=== PATIENT | male | born 2000 | race Caucasian/White ===

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

== ENCOUNTER 2019-12-25 09:02 | Emergency (ER) | payer BC, SELFPAY ==
[2019-12-25 09:13] VITALS: BP 141/87; PULSE 72; RESP 16; TEMP 36.6; O2SAT 98; BMI 20.9
--- NOTE | 2019-12-25 09:59 | HMH.EDBACK ---
ED Disposition Clinical Impression: Strain of lumbar region Disposition: Home, Self-Care Condition on Discharge: Good Instructions: DI for Low Back Pain, DI Sacroiliac Joint Dysfunction Prescriptions: Nabumetone 750 mg PO BID 10 Days #20 tab Transmission Status: Pending to [facility] Tizanidine HCl [Zanaflex 4mg tablet] 4 mg PO TID 10 Days #30 tab Transmission Status: Pending to [facility] Referrals: Provider,Referral, [Primary Care Provider] - - Critical Care Critical Care Time: No Attestation: On 12/25/19, the high probability of a clinically significant, sudden or life threatening deterioration of the following system(s) required my full and direct attention, intervention and personal management. The time I documented below is in addition to time spent performing reported procedures but includes the following listed in this critical care notation. Medical Decision Making - Medical Records Medical records reviewed: Yes: I reviewed the patient's medical records. - Chau Inquiry Pt receiving controlled substance: No Vital Signs: 12/25/19 09:13 Temperature 98 F Temperature Source Oral Pulse Rate [Left Radial] 72 Respiratory Rate 16 Blood Pressure [Right Arm] 141/87 H Blood Pressure Mean [Right Arm] 105 Blood Pressure Position [Right Arm] Sitting 02 Sat by Pulse Oximetry 98 Oxygen Delivery Method Room Air - Lab Data Lab results reviewed: Yes: I reviewed the patient's lab results. Orders (Tests/Meds): ORDERS Category Date Time Status Lumbar spine XR 2-3 views [XR lumbar spine 2-3V] Stat Exams 12/25/19 09:19 Stop Req Back Pain HPI - General Chief Complaint: Back Pain/Injury Stated Complaint: kidney pain,lower back pain no accident Time Seen by Provider: 12/25/19 09:59 Mode of Arrival: Ambulatory Source of Information: Patient Limitations: No Limitations Description of Symptoms (Recalled from ER Triage Doc. by RN): to ed per pvt car with c/o lower back pain with pain lt hip worse with movement. pt states he just went back to work and pain worse states he has been using a heating pad and tylenol with no relief - History of Present Illness HPI Narrative: 1-year-old male comes in with left-sided pain. He states the pain started yesterday after lifting some heavy objects. He states that it goes down almost in the flank area down to his buttocks and also down to his leg. Patient denies any numbness or tingling in his legs. Patient also denies any bowel or bladder incontinence. Patient also denies any recent fever shakes or chills. MD Complaint: back pain Onset (ago): hour(s) Duration: constant Similar Symptoms Previously: Yes Location: lumbar spine Severity: mild Quality: sharp Radiation: none Severity scale (1-10): 3 Exacerbating factors: none Context: while lifting - Related Data Previous Rx's Medication Instructions Recorded montelukast 10 mg tablet 10 mg PO PM #30 tab 09/10/18 Ondansetron [Zofran 4mg ODT] 4 mg PO Q8HP PRN #10 tab.rapdis 10/23/19 Nabumetone 750 mg PO BID 10 Days #20 tab 12/25/19 Tizanidine HCl [Zanaflex 4mg 4 mg PO TID 10 Days #30 tab 12/25/19 tablet] Allergies Allergy/AdvReac Type Severity Reaction Status Date / Time Penicillins [PENICILLINS] Allergy Unknown Verified 10/21/19 11:45 [facility] History - Hepatitis A Screen Drug use history?: No High risk sexual behaviors?: No History of sexually transmitted infection?: No Currently employed?: No Childcare worker?: No Do you have indoor plumbing?: Yes Do you have electricity?: Yes Attestation statement:: This patient has been screened for Hepatitis A risk factors. I have reviewed the patient's past medical history: Yes Medical History: Reports:: Anxiety Denies:: Cancer, Diabetes Mellitus Type 1, Diabetes Mellitus Type 2, MRSA Amputation: No Fractures: No - Social History Smoking Status: Current some day smoker Tobacco Type: cigarettes Alcohol Intake: nasrin
[2019-12-25 10:09] VITALS: BP 122/87; PULSE 87; RESP 20; TEMP 36.6; O2SAT 98
== END 2019-12-25 10:10 | disposition home or self-care (01) ==
PROVIDERS: Emergency Provider Family Medicine
DX: S39.012A Strain of muscle, fascia and tendon of lower back, initial encounter (principal); F41.8 Other specified anxiety disorders; F17.210 Nicotine dependence, cigarettes, uncomplicated; Z88.0 Allergy status to penicillin
CPT/HCPCS: 99281

== ENCOUNTER 2020-01-21 17:28 | Emergency (ER) | payer BC, SELFPAY ==
[2020-01-21 17:29] VITALS: BP 136/77; PULSE 84; RESP 22; TEMP 36.7; O2SAT 100; BMI 21.1
--- NOTE | 2020-01-21 18:09 | HMH.EDUTC ---
[facility] – [place] Disposition Clinical Impression: Asthma Qualifiers: Asthma severity: unspecified severity Asthma persistence: unspecified Asthma complication type: unspecified Qualified Code(s): J45.909 - Unspecified asthma, uncomplicated Disposition: Home, Self-Care Condition on Discharge: Good Instructions: Asthma -- Adult, DI for Asthma -- Adult Additional Instructions: Drink plenty of fluids. Take the medications as directed. Follow up with your regular doctor. GO TO THE ER FOR ANY WORSENING SYMPTOMS Prescriptions: Albuterol Sulfate [Albuterol Sulfate Hfa] 2 puffs IH Q6HP PRN 30 Days #1 hfa.aer.ad PRN Reason: Shortness Of Breath Transmission Status: Received by [facility] Referrals: Provider,Referral, [Primary Care Provider] - Forms: Work/School Release Time of Disposition: 18:15 Medical Decision Making - Medical Records Medical records reviewed: No: I reviewed the patient's medical records. - Chau Inquiry Pt receiving controlled substance: No Vital Signs: 01/21/20 17:29 01/21/20 18:17 Temperature 98.0 F 98.0 F Temperature Source Oral Pulse Rate 84 Pulse Rate [Left Radial] 84 Respiratory Rate 22 22 Blood Pressure 136/77 Blood Pressure [Left Arm] 136/77 Blood Pressure Mean [Left Arm] 96 02 Sat by Pulse Oximetry 100 [facility] [place] HPI - General Stated complaint: chest congestion Time Seen by Provider: 01/21/20 17:30 Mode of Arrival: Ambulatory Source of Information: Patient Limitations: No Limitations Description of Symptoms (Recalled from Triage Doc. by RN): PT STATES THAT HE HAS ASTHMA AND HAD AN ATTACK LAST NIGHT WHILE AT WORK AND IS OUT OF HIS EMERGENCY INHALER HEENT Symptoms (Recalled from RN notes): No Resp Symptoms (Recalled from RN notes): Yes (ASTHMA, NEEDS INHALER) Skin Symptoms (Recalled from RN notes): No MS Symptoms (Recalled from RN notes): No Functional Status (Recalled from RN notes): N/A - History of Present Illness Provider Complaint: He has a history of asthma. He doesn't usually have symptoms very frequently, but at his job he has been having to work in front of a big fan that stirs up dust. He states that the dust has been triggering his asthma and he has been wheezing and coughing while at work. He does not have an inhaler at this time. - Related Data Previous Rx's Medication Instructions Recorded montelukast 10 mg tablet 10 mg PO PM #30 tab 09/10/18 Ondansetron [Zofran 4mg ODT] 4 mg PO Q8HP PRN #10 tab.rapdis 10/23/19 Nabumetone 750 mg PO BID 10 Days #20 tab 12/25/19 Tizanidine HCl [Zanaflex 4mg 4 mg PO TID 10 Days #30 tab 12/25/19 tablet] Albuterol Sulfate [Albuterol 2 puffs IH Q6HP PRN 30 Days #1 01/21/20 Sulfate Hfa] hfa.aer.ad Allergies Allergy/AdvReac Type Severity Reaction Status Date / Time Penicillins [PENICILLINS] Allergy Unknown Verified 10/21/19 11:45 - Worker's Comp Is this a Worker's Comp case?: No [facility] History - Hepatitis A Screen Drug use history?: No High risk sexual behaviors?: No History of sexually transmitted infection?: No Currently employed?: No Childcare worker?: No Do you have indoor plumbing?: Yes Do you have electricity?: Yes Attestation statement:: This patient has been screened for Hepatitis A risk factors. I have reviewed the patient's past medical history: Yes Medical History: Reports:: Anxiety Denies:: Cancer, Diabetes Mellitus Type 1, Diabetes Mellitus Type 2, MRSA Amputation: No Fractures: No - Social History Smoking Status: Never smoker Tobacco Type: cigarettes Alcohol Intake: never Alcohol Intake Frequency:: other Substance Use Type: marijuana Occupational Status: employed Housing: other Household Members: other - Psychiatric History Pschychiatric History:: Reports:: Anxiety Family Hx:: No significant family history ROS Obtained: Yes All systems reviewed & no additional complaints - Constitutional Constitutional: Denies chills, Denies fever(s), Denies poor appetite, Obie
[2020-01-21 18:17] VITALS: BP 136/77; PULSE 84; RESP 22; TEMP 36.7; O2SAT 100
== END 2020-01-21 18:21 | disposition home or self-care (01) ==
PROVIDERS: Emergency Provider Nurse Practitioner Family
DX: J45.909 Unspecified asthma, uncomplicated (principal); F41.9 Anxiety disorder, unspecified
CPT/HCPCS: 99201

== ENCOUNTER 2020-03-18 10:01 | Emergency (ER) | payer OTHER, BC, SELFPAY ==
[2020-03-18 10:02] VITALS: BP 130/89; BP 132/89; PULSE 73; PULSE 76; RESP 16; RESP 18; TEMP 36.9; O2SAT 98; O2SAT 99; BMI 20.3
--- NOTE | 2020-03-18 10:11 | HMH.EDBACK ---
ED Disposition Clinical Impression: Thoracic myofascial strain Disposition: Home, Self-Care Condition on Discharge: Good Instructions: DI for Thoracic Back Pain Prescriptions: Ibuprofen [Ibuprofen 800mg Tablet] 800 mg PO TIDP PRN #20 tab PRN Reason: Moderate Pain Transmission Status: Pending to [facility] methocarbamoL [Robaxin 750mg Tab] 750 mg PO TID #21 tab Transmission Status: Pending to [facility] Referrals: PCP,No [Primary Care Provider] - Eren Farias MD [Staff Physician] - - Critical Care Critical Care Time: No Attestation: On , the high probability of a clinically significant, sudden or life threatening deterioration of the following system(s) required my full and direct attention, intervention and personal management. The time I documented below is in addition to time spent performing reported procedures but includes the following listed in this critical care notation. Medical Decision Making - Medical Records Medical records reviewed: Yes: I reviewed the patient's medical records. - Chau Inquiry Pt receiving controlled substance: No Vital Signs: 03/18/20 10:02 Pulse Rate [Right] 76 Respiratory Rate 18 Blood Pressure [Right Arm] 132/89 Blood Pressure Mean [Right Arm] 103 Blood Pressure Source [Right Arm] Automatic Cuff Blood Pressure Position [Right Arm] Supine 02 Sat by Pulse Oximetry 99 Oxygen Delivery Method Room Air - Reevaluation(s) Time: 10:15 Reevaluation #1: On reevaluation, patient is feeling better. Repeat exam does not show any neuro deficit. Patient is to follow-up with PCP. Given strict return precautions. Verbalized understanding. Medical Decision Narrative: 19-year-old male presenting to the emergency department with back pain. Patient symptoms are consistent with thoracic strain. Patient will be provided analgesics. Patient was given precautions injury maintenance. Back Pain HPI - General Chief Complaint: Back Pain/Injury Stated Complaint: [id number] back injury Time Seen by Provider: 03/18/20 10:12 Source of Information: Patient - History of Present Illness HPI Narrative: 19-year-old male presented to the emergency department with back pain. Patient states that he was working overnight when he injured his back. Patient states that he was lifting and twisting to place a box on a pallet when he felt some pain in his right upper back. Is dull in nature. It did worsen overnight as he continued working. Patient states that he went home and was having some spasm in his right upper back. Currently it is dull in nature. Nonradiating. He denies any chest pain or shortness of breath. No abdominal pain or vomiting. No dysuria or hematuria. No loss of sensation. No headache or change in vision. No direct trauma. - Related Data Previous Rx's Medication Instructions Recorded Ondansetron [Zofran 4mg ODT] 4 mg PO Q8HP PRN #10 tab.rapdis 10/23/19 Nabumetone 750 mg PO BID 10 Days #20 tab 12/25/19 Tizanidine HCl [Zanaflex 4mg 4 mg PO TID 10 Days #30 tab 12/25/19 tablet] Albuterol Sulfate [Albuterol 2 puffs IH Q6HP PRN 30 Days #1 01/21/20 Sulfate Hfa] hfa.aer.ad Ibuprofen [Ibuprofen 800mg 800 mg PO TIDP PRN #20 tab 03/18/20 Tablet] methocarbamoL [Robaxin 750mg Tab] 750 mg PO TID #21 tab 03/18/20 Allergies Allergy/AdvReac Type Severity Reaction Status Date / Time Penicillins [PENICILLINS] Allergy Unknown Verified 10/21/19 11:45 [facility] History - Hepatitis A Screen Drug use history?: No High risk sexual behaviors?: No History of sexually transmitted infection?: No Currently employed?: Yes Childcare worker?: No Do you have indoor plumbing?: Yes Do you have electricity?: Yes Does patient meet criteria?: No Does patient agree to Hepatitis A vaccine administration?: No Attestation statement:: This patient has been screened for Hepatitis A risk factors. Medical History: Reports:: Anxiety Denies:
[2020-03-18 10:32] VITALS: BP 122/78; PULSE 73; RESP 16; O2SAT 98
[2020-03-18 10:49] VITALS: BP 122/78; PULSE 73; RESP 15; TEMP 36.9; O2SAT 99
== END 2020-03-18 10:50 | disposition home or self-care (01) ==
PROVIDERS: Emergency Provider Emergency Medicine
DX: S29.019A Strain of muscle and tendon of unspecified wall of thorax, initial encounter (principal); X50.0XXA Overexertion from strenuous movement or load, initial encounter; Y92.69 Other specified industrial and construction area as the place of occurrence of the external cause; Y99.0 Civilian activity done for income or pay
CPT/HCPCS: 96372; 99282

== ENCOUNTER 2020-06-28 10:39 | Emergency (ER) | payer OTHER, SELFPAY ==
[2020-06-28 11:15] VITALS: BP 159/81; PULSE 101; RESP 14; TEMP 37.6; O2SAT 99; BMI 21.9
--- NOTE | 2020-06-28 11:29 | HMH.EDUTC ---
[facility] [place] Disposition Clinical Impression: Viral syndrome, Exposure to COVID-19 virus Disposition: Home, Self-Care Condition on Discharge: Good Instructions: Preventing the Spread of Coronavirus Discharge Instructions Additional Instructions: Drink plenty of fluids. Take tylenol for pain or fever. Return if you begin to have difficulty breathing. Follow up with your regular doctor. GO TO THE ER FOR ANY WORSENING SYMPTOMS Prescriptions: Albuterol Sulfate [Albuterol Sulfate Hfa] 2 puffs IH Q6HP PRN 30 Days #1 hfa.aer.ad PRN Reason: Shortness Of Breath Transmission Status: Received by [facility] Azithromycin [Z-Dominic 250mg Tab*] 250 mg PO UD DOSE PK #6 tab Transmission Status: Received by [facility] Referrals: PCP,No [Primary Care Provider] - Forms: Work/School Release Time of Disposition: 11:43 Medical Decision Making - Medical Records Medical records reviewed: No: I reviewed the patient's medical records. - Chau Inquiry Pt receiving controlled substance: No Vital Signs: 06/28/20 11:15 06/28/20 11:47 Temperature 99.7 F H 99.7 F H Temperature Source Oral Pulse Rate 101 H Pulse Rate [Right Brachial] 101 H Respiratory Rate 14 14 Blood Pressure 159/81 H Blood Pressure [Right Arm] 159/81 H Blood Pressure Mean [Right Arm] 107 Blood Pressure Source [Right Arm] Automatic Cuff Blood Pressure Position [Right Arm] Sitting 02 Sat by Pulse Oximetry 99 Oxygen Delivery Method Room Air Orders (Tests/Meds): ORDERS Category Date Time Status Covid-19 Nasal PCR Sendout [facility] Routine Lab 06/28/20 11:10 Received [facility] [place] HPI - General Stated complaint: covid exposure Time Seen by Provider: 06/28/20 11:29 Mode of Arrival: Ambulatory Source of Information: Patient Limitations: No Limitations Description of Symptoms (Recalled from Triage Doc. by RN): PATIENT C/O FEVER, WEAKNESS, CHILLS, FATIGUE AND HEADACHE SINCE YESTERDAY; REPORTS BEING EXPOSED TO COVID HEENT Symptoms (Recalled from RN notes): Yes Resp Symptoms (Recalled from RN notes): No Skin Symptoms (Recalled from RN notes): No MS Symptoms (Recalled from RN notes): No Functional Status (Recalled from RN notes): WNL - History of Present Illness Provider Complaint: He states that he was exposed to covid at his job last week. Over the past 2 days he has had chilling, low grade fever and body aches. He denies any cough or respiratory symptoms. He has a history of asthma, but at this time he is having no symptoms. - Related Data Previous Rx's Medication Instructions Recorded Ondansetron [Zofran 4mg ODT] 4 mg PO Q8HP PRN #10 tab.rapdis 10/23/19 Nabumetone 750 mg PO BID 10 Days #20 tab 12/25/19 Tizanidine HCl [Zanaflex 4mg 4 mg PO TID 10 Days #30 tab 12/25/19 tablet] Albuterol Sulfate [Albuterol 2 puffs IH Q6HP PRN 30 Days #1 01/21/20 Sulfate Hfa] hfa.aer.ad Ibuprofen [Ibuprofen 800mg 800 mg PO TIDP PRN #20 tab 03/18/20 Tablet] methocarbamoL [Robaxin 750mg Tab] 750 mg PO TID #21 tab 03/18/20 Albuterol Sulfate [Albuterol 2 puffs IH Q6HP PRN 30 Days #1 06/28/20 Sulfate Hfa] hfa.aer.ad Azithromycin [Z-Dominic 250mg Tab*] 250 mg PO UD DOSE PK #6 tab 06/28/20 Allergies Allergy/AdvReac Type Severity Reaction Status Date / Time Penicillins [PENICILLINS] Allergy Unknown Verified 10/21/19 11:45 - Worker's Comp Is this a Worker's Comp case?: No [facility] History - Hepatitis A Screen Drug use history?: No High risk sexual behaviors?: No History of sexually transmitted infection?: No Currently employed?: No Childcare worker?: No Do you have indoor plumbing?: Yes Do you have electricity?: Yes Attestation statement:: This patient has been screened for Hepatitis A risk factors. I have reviewed the patient's past medical history: Yes Medical History: Reports:: Anxiety Denies:: Cancer, Diabetes Mellitus Type 1, Diabetes Mellitus Type 2, MRSA Amputation: No Fractures: No - Social History Smoking Statu
[2020-06-28 11:47] VITALS: BP 159/81; PULSE 101; RESP 14; TEMP 37.6; O2SAT 99
[2020-06-28 20:59] LABS: UTC Influenza A Antigen Negative (Negative)
[2020-06-28 21:00] LABS: UTC Influenza B Antigen Negative (Negative)
[2020-06-29 14:53] LABS: Covid-19 Nasal PCR Sendout Lex Not Detected
== END 2020-06-28 11:50 | disposition home or self-care (01) ==
PROVIDERS: Emergency Provider Nurse Practitioner Family
DX: Z20.828 Contact with and (suspected) exposure to other viral communicable diseases (principal); B34.9 Viral infection, unspecified; F41.9 Anxiety disorder, unspecified; Z88.0 Allergy status to penicillin; Z79.899 Other long term (current) drug therapy
CPT/HCPCS: 87804; 99201; U0004

== ENCOUNTER 2020-07-01 18:21 | Emergency (ER) | payer OTHER, SELFPAY ==
[2020-07-01 18:48] VITALS: PULSE 87; RESP 16; TEMP 37.2; O2SAT 98; BMI 24.3
--- NOTE | 2020-07-01 19:00 | HMH.EDUTC ---
[facility] [place] Clinical Impression: URI (upper respiratory infection) Qualifiers: URI type: unspecified URI Qualified Code(s): J06.9 - Acute upper respiratory infection, unspecified Disposition: Home, Self-Care Condition on Discharge: Good Instructions: Sinusitis, DI for Sinusitis, Methylprednisolone Additional Instructions: *Monitor Temp, Over the counter Motrin or Tylenol as directed/as needed Tylenol every 4 hours and Motrin every 6 hours (as long as your family doctor has told you that you can take it) for fever or pain. and straight to ER if unable to lower temp less than 101.0 after medication given *Warm salt water gargles may help to soothe the throat *Throat Lozenges *Warm fluids like tea with honey may help to soothe the throat *Sleep elevated *Humidifier/Vaporizer *Flonase 2 sprays in each nostril daily but be aware that it may take 2-3 days before you notice improvement Follow up IMMEDIATELY for new or worsening symptoms or no Noticeable improvement over the next 48-72 hours. 911 for difficulty breathing or swallowing Prescriptions: Fluticasone Propionate [Flonase 50mcg nasal spray 16gm] 1 spr NS DAILY #1 bottle Transmission Status: Pending to [facility] methylPREDNISolone [Medrol 4mg tab] 4 mg PO DIRECTED #21 tab Transmission Status: Pending to [facility] Referrals: PCP,No [Primary Care Provider] - As needed Time of Disposition: 19:08 Medical Decision Making - Chau Inquiry Pt receiving controlled substance: No Chau was queried for this patient: No Vital Signs: 07/01/20 18:48 Temperature 98.9 F Temperature Source Oral Pulse Rate [Right] 87 Respiratory Rate 16 02 Sat by Pulse Oximetry 98 Oxygen Delivery Method Room Air Medical Decision Narrative: Patient states that he is currently taking zpack Patient educated that zpack will help with sinus infection and continue the medication as prescribed and will add flonase [facility] [place] H[place] - General Stated complaint: high temp at home Time Seen by Provider: 07/01/20 19:00 Mode of Arrival: Ambulatory Source of Information: Patient Limitations: No Limitations Description of Symptoms (Recalled from Triage Doc. by RN): pt advises he has been running a fever on and off for the past couple of days but his covdi tests have been neg HEENT Symptoms (Recalled from RN notes): No Resp Symptoms (Recalled from RN notes): No Skin Symptoms (Recalled from RN notes): No MS Symptoms (Recalled from RN notes): No Functional Status (Recalled from RN notes): na - History of Present Illness Provider Complaint: Patient state that he has been seen mucltiple times and tested for flu and COVID and they was negative State that he has been sick for almost 2 weeks with sinuses states that is taking zpack and symptoms a little better State that earlier he had a fever again so he came in to get checked and having pressure in his ears - Related Data Previous Rx's Medication Instructions Recorded Ondansetron [Zofran 4mg ODT] 4 mg PO Q8HP PRN #10 tab.rapdis 10/23/19 Nabumetone 750 mg PO BID 10 Days #20 tab 12/25/19 Tizanidine HCl [Zanaflex 4mg 4 mg PO TID 10 Days #30 tab 12/25/19 tablet] Albuterol Sulfate [Albuterol 2 puffs IH Q6HP PRN 30 Days #1 01/21/20 Sulfate Hfa] hfa.aer.ad Ibuprofen [Ibuprofen 800mg 800 mg PO TIDP PRN #20 tab 03/18/20 Tablet] methocarbamoL [Robaxin 750mg Tab] 750 mg PO TID #21 tab 03/18/20 Albuterol Sulfate [Albuterol 2 puffs IH Q6HP PRN 30 Days #1 06/28/20 Sulfate Hfa] hfa.aer.ad Azithromycin [Z-Dominic 250mg Tab*] 250 mg PO UD DOSE PK #6 tab 06/28/20 Fluticasone Propionate [Flonase 1 spr NS DAILY #1 bottle 07/01/20 50mcg nasal spray 16gm] methylPREDNISolone [Medrol 4mg 4 mg PO DIRECTED #21 tab 07/01/20 tab] Allergies Allergy/AdvReac Type Severity Reaction Status Date / Time Penicillins [PENICILLINS] Allergy Unknown Verified 10/21/19 11:45 - Worker's Comp Is this a Worker's Comp case?: N
[2020-07-01 19:10] VITALS: BP 0/0; PULSE 87; RESP 16; TEMP 37.2; O2SAT 98
== END 2020-07-01 19:10 | disposition home or self-care (01) ==
PROVIDERS: Emergency Provider Nurse Practitioner
DX: J06.9 Acute upper respiratory infection, unspecified (principal); F41.9 Anxiety disorder, unspecified; Z79.899 Other long term (current) drug therapy
CPT/HCPCS: 99201

== ENCOUNTER 2021-03-13 15:52 | Emergency (ER) | payer OTHER, SELFPAY ==
[2021-03-13 16:48] VITALS: BP 111/83; PULSE 87; RESP 20; TEMP 37.3; O2SAT 97; BMI 24.3
--- NOTE | 2021-03-13 16:50 | HMH.EDUTC ---
[facility] [place] Disposition Clinical Impression: Acute viral syndrome, Exposure to COVID-19 virus Disposition: Home, Self-Care Condition on Discharge: Good Instructions: DI for COVID-19 (Suspected or Confirmed ), Preventing the Spread of Coronavirus Discharge Instructions Additional Instructions: Drink plenty of fluids. Take tylenol for pain or fever. Return if you begin to have difficulty breathing. Follow up with your regular doctor. GO TO THE ER FOR ANY WORSENING SYMPTOMS Quarantine until you know the results of your covid-19 test. If it is positive, the health department should call you and give you further instructions about your length of Quarantine and other thing. Prescriptions: Albuterol Sulfate [Albuterol Sulfate Hfa] 2 puffs IH Q6HP PRN 30 Days #1 hfa.aer.ad PRN Reason: Shortness Of Breath Transmission Status: Received by [facility] Brompheniramine/Pseudoephed/Dm [Bromfed Dm Cough Syrup] 5 ml PO Q6HP PRN #240 syrup PRN Reason: Cough Transmission Status: Received by [facility] Ondansetron [Zofran 4mg ODT] 4 mg PO Q8HP PRN #20 tab.rapdis PRN Reason: Nausea Transmission Status: Received by [facility] methylPREDNISolone [Medrol] 4 mg PO DIRECTED 6 Days #21 tab.ds.pk Transmission Status: Received by [facility] Referrals: Krishan Valente [Primary Care Provider] - Forms: Work/School Release Time of Disposition: 16:59 Medical Decision Making - Medical Records Medical records reviewed: No: I reviewed the patient's medical records. - Chau Inquiry Pt receiving controlled substance: No Vital Signs: 03/13/21 16:48 03/13/21 17:35 Temperature 99.2 F 99.6 F Temperature Source Oral Pulse Rate 80 Pulse Rate [Left] 87 Respiratory Rate 20 18 Blood Pressure 115/82 Blood Pressure [Right Arm] 111/83 Blood Pressure Mean [Right Arm] 92 02 Sat by Pulse Oximetry 97 - Lab Data Lab Results 03/13/21 16:37: Chlamy pneumoniae PCR Not detected, Adenovirus (PCR) Not detected, B. pertussis DNA (PCR) Not detected, Coronavirus OC43 (PCR) Not detected, Coronavirus HKU1 (PCR) Not detected, Coronavirus 229E (PCR) Not detected, SARS-CoV-2 (PCR) Not detected, Coronavirus NL63 (PCR) Not detected, Human Metapneumovir PCR Not detected, Influenza A (H1) PCR Not detected, Influ A (H1N1/09) PCR Not detected, Influenza A (H3) PCR Not detected, Influenza Type A (PCR) Not detected, Influenza Type B (PCR) Not detected, M. pneumoniae (PCR) Not detected, Parainfluenza 1 (PCR) Not detected, Parainfluenza 2 (PCR) Not detected, Parainfluenza 3 (PCR) Not detected, Parainfluenza 4 (PCR) Not detected, RSV (PCR) Detected A, Entero/Rhino (PCR) Not detected [facility] [place] HPI - General Stated complaint: COVID TEST Time Seen by Provider: 03/13/21 16:50 Mode of Arrival: Ambulatory Source of Information: Patient Limitations: No Limitations Description of Symptoms (Recalled from Triage Doc. by RN): PT C/O COUGH, LETHARGY AND FATIUGUE. HEENT Symptoms (Recalled from RN notes): No Resp Symptoms (Recalled from RN notes): Yes (COUGH) Skin Symptoms (Recalled from RN notes): No MS Symptoms (Recalled from RN notes): No Functional Status (Recalled from RN notes): WEAKNESS AND FATIGUE - History of Present Illness Provider Complaint: He states that he was exposed to covid last week. Since Sunday (2 days) he has felt fatigued and he has ran a low grade fever. He denies any cough or congestion. He does have a history of asthma, so he is concerned about his breathing and he needs a new albuterol inhaler. He also has some nausea, but no vomiting or diarrhea. - Related Data Previous Rx's Medication Instructions Recorded Ondansetron [Zofran 4mg ODT] 4 mg PO Q8HP PRN #10 tab.rapdis 10/23/19 Nabumetone 750 mg PO BID 10 Days #20 tab 12/25/19 Tizanidine HCl [Zanaflex 4mg 4 mg PO TID 10 Days #30 tab 12/25/19 tablet] Albuterol Sulfate [Albuterol 2 puffs IH Q6HP PRN 30 Days #1 01/21/20 Sulfate Hfa] hfa.aer.ad
[2021-03-13 17:00] LABS: Adenovirus,PCR Not Detected (NotDetected); Bordetella Pertussis Not Detected (NotDetected); Chlamydophila Pneumoniae, PCR Not Detected (NotDetected); Coronavirus 19, PCR Not Detected (NotDetected); Coronavirus 229E Not Detected (NotDetected); Coronavirus NL63 Not Detected (NotDetected); Coronavirus OC43 Not Detected (NotDetected); Coronovirus HKU1,PCR Not Detected (NotDetected); Human Metapneumovirus Not Detected (NotDetected); Influenza A, PCR Not Detected (NotDetected); Influenza AH1, 2009 Not Detected (NotDetected); Influenza AH1, PCR Not Detected (NotDetected); Influenza AH3,PCR Not Detected (NotDetected); Influenza B, PCR Not Detected (NotDetected); Mycoplasma Pneumoniae, PCR Not Detected (NotDetected); Parainfluenza 1, PCR Not Detected (NotDetected); Parainfluenza 2, PCR Not Detected (NotDetected); Parainfluenza 3, PCR Not Detected (NotDetected); Parainfluenza 4, PCR Not Detected (NotDetected); Rhinovirus/Enterovirus Not Detected (NotDetected)
[2021-03-13 17:35] VITALS: BP 115/82; PULSE 80; RESP 18; TEMP 37.6
[2021-03-13 20:07] LABS: Respiratory Syncytial Virus Detected (NotDetected)
== END 2021-03-13 17:35 | disposition home or self-care (01) ==
PROVIDERS: Emergency Provider Nurse Practitioner Family; PCP Internal Medicine
DX: B34.8 Other viral infections of unspecified site (principal); B97.4 Respiratory syncytial virus as the cause of diseases classified elsewhere; F41.9 Anxiety disorder, unspecified; Z79.899 Other long term (current) drug therapy
CPT/HCPCS: 87581; 87633; 87798; 99202; G0463

== ENCOUNTER → 2021-03-15 21:33 | Outpatient (CLI) | payer OTHER, SELFPAY | PROVIDERS: Visit Provider Nurse Practitioner Family | DX: Z20.822 Contact with and (suspected) exposure to COVID-19 (principal) | CPT/HCPCS: U0003 ==

== ENCOUNTER 2021-03-16 19:50 | Emergency (ER) | payer OTHER, SELFPAY ==
[2021-03-16 21:17] VITALS: BP 148/89; PULSE 68; RESP 22; TEMP 36.6; O2SAT 97; BMI 25.8
--- NOTE | 2021-03-16 21:39 | HMH.EDUTC ---
[facility] [place] Clinical Impression: RSV infection, Viral syndrome Acute bronchitis Qualifiers: Bronchitis organism: unspecified organism Qualified Code(s): J20.9 - Acute bronchitis, unspecified Disposition: Home, Self-Care Condition on Discharge: Good Instructions: Respiratory Syncytial Virus, DI for Respiratory Syncytial Virus -- Adults, DI for Bronchiolitis Additional Instructions: Drink plenty of fluids. Take tylenol or ibuprofen for pain or fever. Continue to take the medications that you are on. Start the antibiotics and the stronger cough medication. Follow up with your regular doctor. GO TO THE ER FOR ANY WORSENING SYMPTOMS The cough medication (promethazine dm) will make you drowsy, so don't drive or operate heavy machinery after taking it. Prescriptions: Promethazine/Dextromethorphan [Promethazine-Dm Syrup] 5 ml PO Q6HP PRN #240 syrup PRN Reason: Cough Transmission Status: Received by [facility] Referrals: Krishan Valente [Primary Care Provider] - Forms: Work/School Release Time of Disposition: 21:57 Medical Decision Making - Medical Records Medical records reviewed: No: I reviewed the patient's medical records. - Chau Inquiry Pt receiving controlled substance: No Vital Signs: 03/16/21 21:17 03/16/21 22:41 Temperature 97.9 F 0 F L Temperature Source Oral Pulse Rate 0 L Pulse Rate [Left] 68 Respiratory Rate 22 0 L Blood Pressure 0/0 L Blood Pressure [Right Arm] 148/89 H Blood Pressure Mean [Right Arm] 108 02 Sat by Pulse Oximetry 97 - Lab Data Lab results reviewed: Yes: I reviewed the patient's lab results. - Radiology Data #1 Image(s): Chest Image Reviewed: Yes I reviewed the patient's radiology image, Yes I have reviewed radiologist's interpretation Preliminary Findings: Abnormal PROCEDURE INFORMATION: Exam: XR Chest Exam date and time: 03/16/2021 9:38 PM Age: 20 years old Clinical indication: Cough and fever and shortness of breath; Patient HX: SOA; Additional info: Cough, rsv +, fever TECHNIQUE: Imaging protocol: XR of the chest. Views: 2 views. COMPARISON: CR CXR2 CHEST-AP VIEW ONLY 04/14/2016 8:36 PM FINDINGS: Lungs: No airspace consolidation. No pulmonary edema. There is a round opacity measuring 1 cm projecting over the left lung apex and posterior left 3rd rib on the AP view, without definite lateral view correlate. This is not seen on prior. Unclear if this is artifact, a pulmonary nodule, or a sclerotic bone lesion (likely bone island). Pleural spaces: No pleural effusion. No pneumothorax. Heart/Mediastinum: Normal heart size. Bones/joints: No acute displaced fracture. IMPRESSION: 1. No radiographic evidence of pneumonia. 2. Questionable new 1 cm round radiopacity projecting over the left apex and left posterior 3rd rib, potentially artifact, pulmonary nodule, or bone island. Given age, it is probably a benign finding, without routine follow-up recommended. Medical Decision Narrative: He was notified via telephone voice mail to call back to discuss his chest x-ray report. I am still awaiting a call back from him. [facility] [place] - General Stated complaint: RSV, Cough,SOB Time Seen by Provider: 03/16/21 21:39 Mode of Arrival: Ambulatory Source of Information: Patient Limitations: No Limitations Description of Symptoms (Recalled from Triage Doc. by RN): pt was dx with RSV. he states his cough and soa is getting worse HEENT Symptoms (Recalled from RN notes): No Resp Symptoms (Recalled from RN notes): Yes (cough and soa) Skin Symptoms (Recalled from RN notes): No MS Symptoms (Recalled from RN notes): No Functional Status (Recalled from RN notes): na - History of Present Illness Provider Complaint: He is here with complaints of feeling worse and coughing worse. He had an upper respiratory viral pcr swab that showed he has RSV d
[2021-03-16 22:41] VITALS: BP 0/0; PULSE 0; RESP 0; TEMP -17.7; TEMP 0
== END 2021-03-16 22:43 | disposition home or self-care (01) ==
PROVIDERS: Emergency Provider Nurse Practitioner Family; PCP Internal Medicine
DX: J20.9 Acute bronchitis, unspecified (principal); B97.4 Respiratory syncytial virus as the cause of diseases classified elsewhere; B34.9 Viral infection, unspecified; F41.9 Anxiety disorder, unspecified
CPT/HCPCS: 71046; 99202; G0463

== ENCOUNTER 2021-03-21 18:11 | Emergency (ER) | payer OTHER, SELFPAY ==
--- NOTE | 2021-03-21 19:34 | HMH.EDUTC ---
[facility] [place] Clinical Impression: Viral syndrome, Exposure to COVID-19 virus Disposition: Home, Self-Care Condition on Discharge: Good Instructions: DI for Viral Syndrome, Preventing the Spread of Coronavirus Discharge Instructions Additional Instructions: Drink plenty of fluids. Take tylenol for pain or fever. Return if you begin to have difficulty breathing. Follow up with your regular doctor. GO TO THE ER FOR ANY WORSENING SYMPTOMS Quarantine until you know the results of your covid-19 test. If it is positive, the health department should call you and give you further instructions about your length of Quarantine and other things. Notify your school or workplace of your results and follow their instructions regarding return to work/school. Referrals: Krishan Valente [Primary Care Provider] - Time of Disposition: 19:40 Medical Decision Making - Medical Records Medical records reviewed: No: I reviewed the patient's medical records. - Chau Inquiry Pt receiving controlled substance: No Vital Signs: 03/21/21 19:41 Temperature 98.1 F Temperature Source Oral Pulse Rate 65 Respiratory Rate 16 Blood Pressure 132/62 Blood Pressure Source Automatic Cuff Blood Pressure Position Sitting Oxygen Delivery Method Room Air [facility] [place] - General Stated complaint: covid test Time Seen by Provider: 03/21/21 19:34 - History of Present Illness Provider Complaint: He had to come back in for a covid test. He has had RSV already, but now his is sick and she has tested positive for covid-19. So, he states that he needs rechecked for covid-19. He denies that he is feeling very bad at this point. He has been vaccinated against covid-19. - Related Data Previous Rx's Medication Instructions Recorded Ibuprofen [Ibuprofen 800mg 800 mg PO TIDP PRN #20 tab 03/18/20 Tablet] methocarbamoL [Robaxin 750mg Tab] 750 mg PO TID #21 tab 03/18/20 Albuterol Sulfate [Albuterol 2 puffs IH Q6HP PRN 30 Days #1 03/13/21 Sulfate Hfa] hfa.aer.ad Brompheniramine/Pseudoephed/Dm 5 ml PO Q6HP PRN #240 syrup 03/13/21 [Bromfed Dm Cough Syrup] methylPREDNISolone [Medrol] 4 mg PO DIRECTED 6 Days #21 03/13/21 tab.ds.pk Promethazine/Dextromethorphan 5 ml PO Q6HP PRN #240 syrup 03/16/21 [Promethazine-Dm Syrup] Allergies Allergy/AdvReac Type Severity Reaction Status Date / Time Penicillins [PENICILLINS] Allergy Unknown Verified 03/15/21 12:29 [facility] History - Hepatitis A Screen Attestation statement:: This patient has been screened for Hepatitis A risk factors. I have reviewed the patient's past medical history: Yes Medical History: Reports:: Anxiety Denies:: Cancer, Diabetes Mellitus Type 1, Diabetes Mellitus Type 2, MRSA Amputation: No Fractures: No - Social History Smoking Status: Never smoker Tobacco Type: cigarettes Alcohol Intake: never Alcohol Intake Frequency:: other Substance Use Type: marijuana Occupational Status: other Housing: other Household Members: other - Psychiatric History Pschychiatric History:: Reports:: Anxiety Family Hx:: No significant family history ROS Obtained: Yes All systems reviewed & no additional complaints - Constitutional Constitutional: Reports system reviewed and no additional complaints, except as docu - Eyes Eyes: Reports system reviewed and no additional complaints, except as docu - ENT Ears, Nose, Mouth, and Throat: Reports system reviewed and no additional complaints, except as docu - Cardiovascular Cardiovascular: Reports system reviewed and no additional complaints, except as docu - Respiratory Respiratory: Reports system reviewed and no additional complaints, except as docu - Gastrointestinal Gastrointestingal: Reports: system reviewed and no additional complaints, except as docu Physical Exam - General General appearance: alert, in no apparent distress - Head Head exam: atraumatic, normocephalic, normal inspection - Eye
[2021-03-21 19:41] VITALS: BP 132/62; PULSE 65; RESP 16; TEMP 36.7; O2SAT 98
== END 2021-03-21 19:41 | disposition home or self-care (01) ==
PROVIDERS: Emergency Provider Nurse Practitioner Family; PCP Internal Medicine
DX: B34.9 Viral infection, unspecified (principal); Z20.822 Contact with and (suspected) exposure to COVID-19; F41.9 Anxiety disorder, unspecified
CPT/HCPCS: 99202; G0463; U0003

== ENCOUNTER 2021-03-23 19:04 | Emergency (ER) | payer OTHER, SELFPAY ==
[2021-03-23 20:53] VITALS: BP 144/82; PULSE 91; RESP 19; TEMP 36.8; O2SAT 98; BMI 24.3
[2021-03-23 20:59] VITALS: BP 144/82; PULSE 91; RESP 19; TEMP 36.8
--- NOTE | 2021-03-23 21:07 | HMH.EDUTC ---
[facility] [place] Clinical Impression: Close exposure to COVID-19 virus Disposition: Home, Self-Care Condition on Discharge: Good Instructions: DI for COVID-19 (Suspected or Confirmed ), Coronavirus Disease 2019, Preventing the Spread of Coronavirus Discharge Instructions Additional Instructions: *Monitor Temp, Over the counter Motrin or Tylenol as directed/as needed Tylenol every 4 hours and Motrin every 6 hours (as long as your family doctor has told you that you can take it) for fever or pain. and straight to ER if unable to lower temp less than 101.0 after medication given *Warm salt water gargles may help to soothe the throat *Throat Lozenges *Warm fluids like tea with honey may help to soothe the throat *Sleep elevated *Humidifier/Vaporizer * Follow up IMMEDIATELY for new or worsening symptoms or no Noticeable improvement over the next 48-72 hours. 911 for difficulty breathing or swallowing You were tested for today for COVID19 your test result should be back in the next 24-48 hours, you may call to the [facility] to see if your test results are back in the next 48 hours [phone] [facility] hours are 9am-9pm You was given a handout with instructions for Self Quarantine and Self isolation for while you wait on test results and what to do if they are positive If you are positive the Health Dept will be contacting you also Make sure to take your Vitamins Vit. C Vit D and Zinc if you can take them Referrals: Krishan Valente [Primary Care Provider] - Forms: Work/School Release Time of Disposition: 21:10 Medical Decision Making - Chau Inquiry Pt receiving controlled substance: No Chau was queried for this patient: No Vital Signs: 03/23/21 20:53 03/23/21 20:59 Temperature 98.2 F 98.2 F Temperature Source Oral Pulse Rate 91 H Pulse Rate [Left] 91 H Respiratory Rate 19 19 Blood Pressure 144/82 H Blood Pressure [Right Arm] 144/82 H Blood Pressure Mean [Right Arm] 102 02 Sat by Pulse Oximetry 98 Orders (Tests/Meds): ORDERS Category Date Time Status Covid-19 Nasal PCR ([facility]) Routine Lab 03/23/21 20:51 Ordered [facility] [place] - General Stated complaint: coivd test Time Seen by Provider: 03/23/21 21:07 Mode of Arrival: Ambulatory Source of Information: Patient Limitations: No Limitations Description of Symptoms (Recalled from Triage Doc. by RN): pt c/o fever, runny nose, weakness and JUSTIN since this am. ramandeep covid positive. HEENT Symptoms (Recalled from RN notes): Yes (runny nose and JUSTIN) Resp Symptoms (Recalled from RN notes): No Skin Symptoms (Recalled from RN notes): No MS Symptoms (Recalled from RN notes): No Functional Status (Recalled from RN notes): weakness and fever hx - History of Present Illness Provider Complaint: Patient states that daughter and melvin have COVID right now and he has now started having symptoms needing to get tested State that he started with fever, chills, body aches and feeling tired today so he came in to get tested Denies SOA - Related Data Previous Rx's Medication Instructions Recorded Ibuprofen [Ibuprofen 800mg 800 mg PO TIDP PRN #20 tab 03/18/20 Tablet] methocarbamoL [Robaxin 750mg Tab] 750 mg PO TID #21 tab 03/18/20 Albuterol Sulfate [Albuterol 2 puffs IH Q6HP PRN 30 Days #1 03/13/21 Sulfate Hfa] hfa.aer.ad Brompheniramine/Pseudoephed/Dm 5 ml PO Q6HP PRN #240 syrup 03/13/21 [Bromfed Dm Cough Syrup] methylPREDNISolone [Medrol] 4 mg PO DIRECTED 6 Days #21 03/13/21 tab.ds.pk Promethazine/Dextromethorphan 5 ml PO Q6HP PRN #240 syrup 03/16/21 [Promethazine-Dm Syrup] Allergies Allergy/AdvReac Type Severity Reaction Status Date / Time Penicillins [PENICILLINS] Allergy Unknown Verified 03/15/21 12:29 - Worker's Comp Is this a Worker's Comp case?: No [facility] History - Hepatitis A Screen Drug use history?: No High risk sexual behaviors?: No History of sexually transmitted infection?: No Currently employed?: No Childcare worker?: No Do
--- NOTE | 2021-03-24 09:57 | PC.NURSE ---
Patient notified of positive COVID result
== END 2021-03-23 21:16 | disposition home or self-care (01) ==
PROVIDERS: Emergency Provider Nurse Practitioner; PCP Internal Medicine
DX: U07.1 COVID-19 (principal); F41.9 Anxiety disorder, unspecified; Z88.0 Allergy status to penicillin
CPT/HCPCS: 99202; G0463; U0003

== ENCOUNTER → 2021-09-30 16:02 | Outpatient (CLI) | payer OTHER, SELFPAY | PROVIDERS: PCP Internal Medicine; Visit Provider Internal Medicine | DX: Z20.822 Contact with and (suspected) exposure to COVID-19 (principal) | CPT/HCPCS: C9803; U0003; U0005 ==

== ENCOUNTER 2023-05-16 06:18 | Emergency (ER) | payer BC, SELFPAY ==
[2023-05-16 06:21] VITALS: BP 130/90; PULSE 87; RESP 16; TEMP 36.7; O2SAT 100; BMI 29.7
--- NOTE | 2023-05-16 06:31 | XR_ITS ---
FINAL REPORT CLINICAL HISTORY: hand vs door FINDINGS: Right hand Three views were obtained. There is no acute fracture or dislocation. The joint spaces appear normal. There is dorsal hand soft tissue swelling. IMPRESSION: No acute process. Reviewed, Interpreted and Dictated by Vikas Rodríguez III, MD Transcribed by Shira Iyer Authenticated and [facility]
--- NOTE | 2023-05-16 06:34 | HMH.EDGENADL ---
Discharge Plan Disposition Patient Disposition: Home, Self-Care Chief Complaint: Extremity Injury, Upper Prescriptions Prescriptions: No Action No Known Home Medications Referrals Follow up/Referrals: Krishan Valente MD [Primary Care Provider] - See instructions Activity Restrictions/Add. Instructions Additional Instructions/Restrictions: You are okay to return to work. Call your family doctor to establish care for this visit to the emergency department and schedule follow-up within 48 hours to ensure improvement. If you have any worsening of your condition or any other concerning signs or symptoms, return to the emergency department or your primary care doctor for further evaluation. Take Tylenol 1000 mg every 6 hours (4 times daily) and ibuprofen 400 mg every 6 hours (4 times daily) as needed with food and water to prevent GI upset and kidney damage. Clinical Impressions Clinical Impression: Hand pain, right Discharge ED Provider: Raine Wilcox General Adult HPI <Raine Wilcox MD - Last Filed: 05/16/23 06:41> General Chief complaint: Extremity Injury, Upper Stated complaint: right hand injury Time Seen by Provider: 05/16/23 06:32 Mode of Arrival: Ambulatory Source of Information: Patient Limitations: No Limitations Description of Symptoms (Recalled from ER Triage Doc. by RN): 22 yo male presents with right hand pain; patient states his heavy wooden door slammed on the hand, adamantly denies hitting anything. states this occurred at home. no previous surgeries or injuries to hand. Patient medicated with tylenol prior to arrival. Allergic to pcn. History of Present Illness HPI narrative: This otherwise healthy 22-year-old male presents to the emergency department with right hand pain and swelling. Patient states a heavy wooden door closed on the right hand crushing it between the wooden door and metal frame. Patient states he primarily has pain over the joint of the middle finger. He states he had this accident around midnight but took Tylenol/ibuprofen around 4 AM. He states he is able to fully move the hand but has pain with it. Related Data Home Medications Medication Instructions Recorded Confirmed No Known Home Medications 05/16/23 05/16/23 Allergies Allergy/AdvReac Type Severity Reaction Status Date / Time Penicillins [PENICILLINS] Allergy Unknown Verified 03/15/21 12:29 PFSH <Raine Wilcox MD - Last Filed: 05/16/23 06:41> [facility] Disclaimer: The information contained in this section may have been updated after the patient was seen, as this information can be updated by other users. Social History Smoking Status: Unknown if ever smoked alcohol intake: never substance use type: marijuana current occupational status: other Travel in the last 8 weeks: None household members: other housing: other number of children: 0 <Raine Wilcox MD - Last Filed: 05/16/23 06:41> ROS Obtained: Yes All systems reviewed & no additional complaints except as documented Constitutional Constitutional: Denies chills, Denies fever(s), Denies headache(s) and Denies weakness Eyes Eyes: Denies change in vision ENT Ears, Nose, Mouth, and Throat: Denies dizziness, Denies headache(s), Denies nasal congestion and Denies sore throat Cardiovascular Cardiovascular: Denies chest pain, Denies dyspnea and Denies leg edema Respiratory Respiratory: Denies cough and Denies dyspnea Gastrointestinal Gastrointestingal: Denies constipation, diarrhea, nausea or vomiting Genitourinary Male Genitourinary: Denies difficulty urinating Musculoskeletal Musculoskeletal: Reports arthralgias, Reports joint swelling, Denies myalgias, Denies numbness and Denies tingling Integumentary/Breasts Skin/Breast: Denies change in pigmentation Neurologic Neurologic: Denies dizziness, Denies headache(s), Denies numbness, Denies tingling and Denies weakness Physical Exam <Raine Wilcox MD - Last Filed: 05/16/23 06:41> General
[2023-05-16 07:26] VITALS: BP 127/81; PULSE 80; RESP 18; TEMP 36.7; O2SAT 98
== END 2023-05-16 07:27 | disposition home or self-care (01) ==
PROVIDERS: Emergency Provider Emergency Medicine; PCP Internal Medicine
DX: M79.641 Pain in right hand (principal); W23.2XXA Caught, crushed, jammed or pinched between a moving and stationary object, initial encounter
CPT/HCPCS: 73130; 99283

== ENCOUNTER 2023-06-24 08:53 | Emergency (ER) | payer BC, SELFPAY ==
[2023-06-24 09:05] VITALS: BP 130/90; PULSE 109; RESP 18; TEMP 37.2; O2SAT 95; BMI 30.7
--- NOTE | 2023-06-24 09:11 | EXP.UTC ---
Discharge Plan Disposition Patient Disposition: Home, Self-Care Condition: Good Prescriptions Prescriptions: No Action No Known Home Medications Referrals Follow up/Referrals: Krishan Valente MD [Primary Care Provider] - See instructions Activity Restrictions/Add. Instructions Additional Instructions/Restrictions: *Monitor Temp, Over the counter Motrin or Tylenol as directed/as needed Tylenol every 4 hours and Motrin every 6 hours (as long as your family doctor has told you that you can take it) for fever or pain. and straight to ER if unable to lower temp less than 101.0 after medication given *Warm salt water gargles may help to soothe the throat *Throat Lozenges? *Warm fluids like tea with honey may help to soothe the throat? *Sleep elevated *Humidifier/Vaporizer Follow up IMMEDIATELY for new or worsening symptoms or no Noticeable improvement over the next 48-72 hours. 911 for difficulty breathing or swallowing You were tested for today for COVID19 your test result should be back in the next 24 hours You may check your results on the [facility] if you are positive for COVID you will need to Quarantine for 5 days Clinical Impressions Clinical Impression: Acute viral syndrome Stand Alone Forms Stand Alone Forms: Work/School Release Instructions Patient Instructions: DI for Viral Syndrome, DI for COVID-19 (Suspected or Confirmed ) Discharge ED Provider: Gianna Luong [facility] HPI General Stated complaint: covid exposure, Time Seen by Provider: 06/24/23 09:11 History of Present Illness Provider Complaint: Patient states that daughter tested positive for COVID on and tested positive on Sunday States that last night he started with fever, chills and body aches so today he came in to get tested due to close exposure and now having symptoms Related Data Home Medications Medication Instructions Recorded Confirmed No Known Home Medications 05/16/23 05/16/23 Allergies Allergy/AdvReac Type Severity Reaction Status Date / Time Penicillins [PENICILLINS] Allergy Unknown Verified 03/15/21 12:29 [facility] Disclaimer: The information contained in this section may have been updated after the patient was seen, as this information can be updated by other users. Medical History (Updated 06/24/23 @ 09:17 by Marla Bazzi RN) Anxiety Asthma Social History Smoking Status: Unknown if ever smoked alcohol intake: never substance use type: marijuana current occupational status: other Travel in the last 8 weeks: None household members: other housing: other number of children: 0 ROS Obtained: Yes All systems reviewed & no additional complaints except as documented and Yes Systems reviewed as appropriate & no additional complaints except as documented Constitutional Constitutional: Reports system reviewed and no additional complaints, except as documented, Reports as per HPI, Reports body ache, Reports chills and Reports fever(s) ENT Ears, Nose, Mouth, and Throat: Reports system reviewed and no additional complaints, except as documented, Reports as per HPI and Reports nasal congestion Cardiovascular Cardiovascular: Reports system reviewed and no additional complaints, except as documented and Reports as per HPI Respiratory Respiratory: Reports system reviewed and no additional complaints, except as documented, Reports as per HPI and Denies shortness of breath Gastrointestinal Gastrointestingal: Reports system reviewed and no additional complaints, except as documented and as per HPI Physical Exam General General appearance: alert and in no apparent distress ENT ENT exam: Present mucous membranes moist and TM's normal bilaterally Expanded ENT Exam Nose exam: Absent sinus tenderness Throat exam: Present normal inspection Chest Chest inspection: Present normal inspection and symmetric chest wall rise Resp
[2023-06-24 09:15] VITALS: BP 130/90; PULSE 109; RESP 18; TEMP 37.2; O2SAT 95
== END 2023-06-24 09:17 | disposition home or self-care (01) ==
PROVIDERS: Emergency Provider Nurse Practitioner; PCP Internal Medicine
DX: U07.1 COVID-19 (principal); R50.9 Fever, unspecified; M79.18 Myalgia, other site; J45.909 Unspecified asthma, uncomplicated
CPT/HCPCS: 87635; 99212; 99214; G0463

== ENCOUNTER 2024-07-18 08:56 | Emergency (ER) | payer BC, SELFPAY ==
[2024-07-18 09:15] VITALS: BP 139/96; PULSE 109; RESP 18; TEMP 37.2; O2SAT 98; BMI 32.8
--- NOTE | 2024-07-18 09:24 | ED_ITS ---
Discharge Plan Disposition Patient Disposition: Home, Self-Care Condition: Good Prescriptions Prescriptions: New guaifenesin [Mucinex] 1,200 mg tablet extended release 12hr 1,200 mg PO Q12H PRN (Reason: congestion) Qty: 20 0RF azithromycin [Zithromax Z-Dominic] 250 mg tablet See Rx Instructions .ROUTE .COMPLEX 5 Days Qty: 6 0RF Rx Instructions: For 250 mg dose pack: take 500 mg today (day 1), then 250 mg for 4 days (days 2-5) methylprednisolone [Medrol (Dominic)] 4 mg tablets,dose pack See Rx Instructions .Route .COMPLEX 6 Days Qty: 21 0RF Rx Instructions: taper pack; albuterol sulfate 90 mcg/actuation HFA aerosol inhaler 2 puff inhalation QID PRN (Reason: shortness of breath or wheezing) Qty: 8.5 0RF Referrals Follow up/Referrals: Krishan Valente MD [Primary Care Provider] - See instructions Activity Restrictions/Add. Instructions Additional Instructions/Restrictions: *Monitor Temp, Over the counter Motrin or Tylenol as directed/as needed Tylenol every 4 hours and Motrin every 6 hours (as long as your family doctor has told you that you can take it) for fever or pain. and straight to ER if unable to lower temp less than 101.0 after medication given *Warm salt water gargles may help to soothe the throat *Throat Lozenges? *Warm fluids like tea with honey may help to soothe the throat? *Sleep elevated *Humidifier/Vaporizer *Bromfed may cause drowsiness. Know how it effects you (your child) before driving, caring for small child, or sending your child to school. Not other antihistamines/allergy medications while taking bromfed Your throat swab was sent for culture. Those results are typically sent to your primary care. Be sure to follow up in 2-3 days with your family doctor/primary care physician if no improvement so they can review those result and treat if necessary. If you don?t have a primary care doctor, I recommend you get one but in the mean time, you will have to return to a walk in clinic Follow up IMMEDIATELY for new or worsening symptoms or no Noticeable improvement over the next 48-72 hours. 911 for difficulty breathing or swallowing Clinical Impressions Clinical Impression: Sinusitis, Bronchitis Stand Alone Forms Stand Alone Forms: Work/School Release Instructions Patient Instructions: DI for Sinusitis, Acute Bronchitis, DI for Acute Bronchitis Print Language Print Language: Burmese Discharge ED Provider: Gianna Luong [facility] HPI General Stated complaint: cough, soa, headache Time Seen by Provider: 07/18/24 09:25 History of Present Illness Provider Complaint: Patient states that he started on Sun not feeling well with sinus congestion, cough, feeling achy and chills States that symptoms have continued to get worse and he was worried with COVID and RSV since he has a little one at home States today he was still feeling bad so he came in to get tested Related Data Previous Rx's ?Medication ?Instructions ?Recorded albuterol sulfate 90 mcg/actuation 2 puff inhalation QID PRN 07/18/24 aerosol inhaler shortness of breath or wheezing #8.5 grams azithromycin 250 mg tablet See Rx Instructions PO .COMPLEX 5 07/18/24 (Zithromax Z-Dominic) days #6 tabs guaifenesin 1,200 mg tablet, 1,200 mg PO Q12H PRN congestion 07/18/24 extended release 12 hr (Mucinex) #20 tabs methylprednisolone 4 mg tablets in See Rx Instructions .Route 07/18/24 a dose pack (Medrol (Dominic)) .COMPLEX 6 days #21 tabs Allergies Allergy/AdvReac Type Severity Reaction Status Date / Time Penicillins (PENICILLINS) Allergy Unknown Verified 01/07/24 11:54 [facility] Disclaimer: The information contained in this section may have been updated after the patient was seen, as this information can be updated by other users. Medical History Anxiety Asthma Social History Smoking Status: Unknown if ever smoked alcohol intake: never substance use type: marijuana current occupational status: other Travel in the last 8 weeks: None household members: other housing: other number of children: 0 Have you lived/traveled outside [place] in past 30 days?: No Contact w/someone who lives/traveled outside US past 30 days?: No Exposure to someone with infectious disease in past 14 days?: No Do you have a fever (greater than 100.4 F or 38 C)?: No Have you tested positive for COVID-19: No Exposed to someone with COVID-19 in past 14 days?: No Do you have a sore throat?: No Do you have a cough?: Yes Do you have any weakness?: No Do you have any diarrhea?: No Are you experiencing any unusual bleeding?: No Do you have any muscle aches/pain?: No Do you have any abdominal pain?: No Are you experiencing loss of taste or smell?: No ROS Obtained: Yes All systems reviewed & no additional complaints except as documented and Yes Systems reviewed as appropriate & no additional complaints except as documented Constitutional Constitutional: Reports system reviewed and no additional complaints, except as documented, Reports as per HPI, Reports body ache, Reports chills, Reports fever(s) and Reports headache(s) ENT Ears, Nose, Mouth, and Throat: Reports system reviewed and no additional complaints, except as documented, Reports as per HPI, Reports headache(s), Reports nasal congestion and Reports nasal discharge Cardiovascular Cardiovascular: Reports system reviewed and no additional complaints, except as documented and Reports as per HPI Respiratory Respiratory: Reports system reviewed and no additional complaints, except as documented, Reports as per HPI, Reports shortness of breath (on and off) and Reports cough Gastrointestinal Gastrointestingal: Reports system reviewed and no additional complaints, except as documented and as per HPI Neurologic Neurologic: Reports headache(s) Physical Exam General General appearance: alert and in no apparent distress ENT ENT exam: Present mucous membranes moist Expanded ENT Exam Nose exam: Present sinus tenderness Throat exam: Present other (PND noted) Respiratory Respiratory exam: Present normal lung sounds bilaterally; Absent respiratory distress or wheezes Cardiovascular Cardiovascular exam: Present regular rate, normal rhythm and tachycardia Abdominal Exam Abdominal exam: Present soft and normal bowel sounds; Absent distention or tenderness Neurological Exam Neurological exam: Present alert, oriented X3 and normal gait Medical Decision Making Medical Records Screening: Per USPSTF and CDC recommendations, given the prevalence of disease in our region, it is our hospital?s policy to screen for HIV and viral Hepatitis for all patients aged 18 and over and those with ongoing risk factors. Chau Inquiry Pt receiving controlled substance: No Chau was queried for this patient: No Lab Data Lab results reviewed: Yes I reviewed the patient's lab results. Orders (Tests/Meds): ORDERS Category Date Time Status Covid-19 Nasal PCR ([facility]) Routine Lab 07/18/24 09:19 Ordered RSV Rapid Ab Screen Stat Lab 07/18/24 09:20 Ordered
[2024-07-18 09:40] VITALS: BP 139/96; PULSE 109; RESP 18; TEMP 37.2; O2SAT 98
[2024-07-18 09:47] LABS: UTC Influenza A Antigen Negative (Negative)
[2024-07-18 09:48] LABS: UTC Influenza B Antigen Negative (Negative)
[2024-07-18 10:46] LABS: RSV Rapid Ab Screen Negative (Negative)
== END 2024-07-18 09:44 | disposition home or self-care (01) ==
PROVIDERS: Emergency Provider Nurse Practitioner; PCP Internal Medicine
DX: J01.90 Acute sinusitis, unspecified (principal); J20.9 Acute bronchitis, unspecified; R09.81 Nasal congestion; R51.9 Headache, unspecified; R05.9 Cough, unspecified
CPT/HCPCS: 87635; 87804; 87807; 99212; G0381

== ENCOUNTER 2025-03-26 18:08 | Observation (INO) | payer BC, SELFPAY ==
[2025-03-26] VITALS (13 sets, daily range): BP systolic 121–165; BP diastolic 59–99; PULSE 60–104; RESP 16–20; TEMP 36.1–36.8; O2SAT 92–100; BMI 32.8
--- NOTE | 2025-03-26 19:05 | CT_ITS ---
PROCEDURE INFORMATION: Exam: CT Abdomen And Pelvis With Contrast Exam date and time: 03/26/2025 7:33 PM Age: 24 years old Clinical indication: Abdominal pain; Additional info: Rlq pain, possible appendicitis TECHNIQUE: Imaging protocol: Computed tomography of the abdomen and pelvis with contrast. Radiation optimization: All CT scans at this facility use at least one of these dose optimization techniques: automated exposure control; mA and/or kV adjustment per patient size (includes targeted exams where dose is matched to clinical indication); or iterative reconstruction. Contrast material: ISOVUE; Contrast volume: 75 ml; Contrast route: IV; COMPARISON: CR XR CHEST 2V 03/16/2021 9:39 PM FINDINGS: Liver: There is diffuse hypoattenuation of the liver compatible with moderate hepatic steatosis. Gallbladder and biliary ducts: The gallbladder is contracted but otherwise unremarkable. Pancreas: Normal. No ductal dilation. Spleen: Normal. No splenomegaly. Adrenal glands: Normal. No mass. Kidneys and ureters: Normal. No hydronephrosis. Stomach and bowel: Unremarkable. No obstruction. No mucosal thickening. Appendix: Intraluminal appendiceal calcification measures 5.4 mm. The appendix demonstrates diffuse distention, measuring up to 11 mm, consistent with mild or early acute appendicitis. There is mild periappendiceal inflammatory change. Intraperitoneal space: Unremarkable. No free air. No significant fluid collection. Vasculature: Unremarkable. No abdominal aortic aneurysm. Lymph nodes: Unremarkable. No enlarged lymph nodes. Urinary bladder: Unremarkable as visualized. Reproductive: Unremarkable as visualized. Bones/joints: Unremarkable. No acute fracture. Soft tissues: Normal. IMPRESSION: 1. Acute appendicitis without evidence of appendiceal perforation or abscess. Recommend surgical consultation. 2. Intraluminal appendiceal calcification measures 5.4 mm.
--- NOTE | 2025-03-26 19:07 | ED_ITS ---
Discharge Plan Disposition Patient Disposition: Admitted Prescriptions Prescriptions: No Action guaifenesin [Mucinex] 1,200 mg tablet extended release 12hr 1,200 mg PO Q12H PRN (Reason: congestion) Qty: 20 0RF azithromycin [Zithromax Z-Dominic] 250 mg tablet See Rx Instructions .ROUTE .COMPLEX 5 Days Qty: 6 0RF Rx Instructions: For 250 mg dose pack: take 500 mg today (day 1), then 250 mg for 4 days (days 2-5) methylprednisolone [Medrol (Dominic)] 4 mg tablets,dose pack See Rx Instructions .Route .COMPLEX 6 Days Qty: 21 0RF Rx Instructions: taper pack; albuterol sulfate 90 mcg/actuation HFA aerosol inhaler 2 puff inhalation QID PRN (Reason: shortness of breath or wheezing) Qty: 8.5 0RF Referrals Follow up/Referrals: Krishan Valente MD [Primary Care Provider, Medical] - See instructions Clinical Impressions Clinical Impression: Acute appendicitis Instructions Patient Instructions: DI for Acute Abdominal Pain Print Language Print Language: Arabic Discharge ED Provider: Rickie Freeman General Adult HPI General Chief complaint: Abdominal Pain Stated complaint: Right side pain,nausea Time Seen by Provider: 03/26/25 18:47 Mode of Arrival: Ambulatory Source of Information: Patient Description of Symptoms (Recalled from ER Triage Doc. by RN): pt states he rlq pain x1 week that is better upon walking but gets worse when standing or twisting, denies any issues with peeing or pooping, alox4, vitals wnl, no hx of abd sx History of Present Illness HPI narrative: Kristian Crespo is a 24y male with no significant past medical history who presents the emergency department for complaints of right lower quadrant pain. Patient states that starting 1 week ago, he had pain in his right lower quadrant that intermittently radiates to his right flank. He states that the pain is worsened with walking and riding in a car. He states that starting this morning at approximately 5 AM, the pain became severe. He describes it as somebody reaching inside and twisting something . He denies any testicular pain or swelling. He denies any urinary symptoms. He states he has had some nausea but no vomiting. He denies any recent constipation or diarrhea. He denies any previous abdominal surgeries. He reports a temperature of 99 ?F earlier today. Related Data Previous Rx's ?Medication ?Instructions ?Recorded albuterol sulfate 90 mcg/actuation 2 puff inhalation Q ID PRN 07/18/24 aerosol inhaler shortness of breath or wheez ing #8.5 grams azithromycin 250 mg tablet See Rx Instructions PO .COM PLEX 5 07/18/24 (Zithromax Z-Dominic) days #6 tabs guaifenesin 1,200 mg tablet, 1,200 mg PO Q12H PRN mario estion 07/18/24 extended release 12 hr (Mucinex) #20 tabs methylprednisolone 4 mg tablets in See Rx Instructions .Route 07/18/24 a dose pack (Medrol (Dominic)) .COMPLEX 6 days #21 tabs Allergies Allergy/AdvReac Type Severity Reaction Status Date / Time Penicillins (PENICILLINS) Allergy Unknown Verified 01/07/24 11:54 [facility] Disclaimer: The information contained in this section may have been updated after the patient was seen, as this information can be updated by other users. Medical History Anxiety Asthma Social History Smoking Status: Never smoker alcohol intake: never substance use type: marijuana current occupational status: other Travel in the last 8 weeks?: None household members: other housing: other number of children: 0 Have you lived/traveled outside US in past 30 days?: No Contact w/someone who lives/traveled outside US past 30 days?: No Exposure to someone with infectious disease in past 14 days?: No Do you have a fever (greater than 100.4 F or 38 C)?: No Have you tested positive for COVID-19?: No Exposed to someone with COVID-19 in past 14 days?: No Do you have a sore throat?: No Do you have a cough?: No Do you have any weakness?: No Do you have any diarrhea?: No Are you experiencing any unusual bleeding?: No Do you have any muscle aches/pain?: No Do you have any abdominal pain?: No Are you experiencing loss of taste or smell?: No Other Medical History Have you received the Flu Vaccine for this season: No Have you received the Pneumonia Vaccine: No ROS Obtained: Yes Systems reviewed as appropriate & no additional complaints except as documented Physical Exam General General appearance: alert and in no apparent distress Head Head exam: atraumatic Eye Eye exam: Present normal appearance ENT ENT exam: Present normal external ear exam Neck Neck exam: Present full ROM Chest Chest inspection: Present symmetric chest wall rise Respiratory Respiratory exam: Present normal lung sounds bilaterally; Absent respiratory distress Cardiovascular Cardiovascular exam: Present regular rate and normal rhythm Abdominal Exam Abdominal exam: Present soft, tenderness (RLQ >> right upper quadrant and epigastric), psoas sign, obturator sign, Rovsing's sign and tenderness at McBurney's Point; Absent guarding exam: Present deferred Extremities Exam Extremities exam: Present normal inspection Back Exam Back exam: Present normal inspection Neurological Exam Neurological exam: Present alert and oriented X3 Psychiatric Psychiatric exam: Present normal affect Skin Skin exam: Present warm and dry Medical Decision Making Medical Records Screening: Per USPSTF and CDC recommendations, given the prevalence of disease in our region, it is our hospital?s policy to screen for HIV and viral Hepatitis for all patients aged 18 and over and those with ongoing risk factors. Chau Inquiry Pt receiving controlled substance: No Vital Signs: 03/26/25 19:00 03/26/25 19:03 03/26/25 20:00 Temperature 98.2 F Temperature Source Oral Pulse Rate 96 H 104 H Pulse Rate [Left Radial] 84 Respiratory Rate 20 16 Blood Pressure 140/94 H 143/83 H Blood Pressure [Right Arm] 140/90 Blood Pressure Mean [Right Arm] 106 02 Sat by Pulse Oximetry 99 98 98 Oxygen Delivery Method Room Air 03/26/25 20:15 03/26/25 20:19 Temperature 97.8 F 98.2 F Temperature Source Pulse Rate 95 H 96 H Pulse Rate [Left Radial] Respiratory Rate 18 20 Blood Pressure 143/83 H Blood Pressure [Right Arm] Blood Pressure Mean [Right Arm] 02 Sat by Pulse Oximetry 99 Oxygen Delivery Method Room Air Lab Data Lab Results 03/26/25 19:07: WBC 12.3 H, RBC 5.30, Hgb 15.2, Hct 44.6, MCV 84.2, MCH 28.7, MCHC 34.1, RDW 11.9, Plt Count 324, MPV 9.1, Neut % (Auto) 60.3, Lymph % (Auto) 26.9, [place] % (Auto) 8.0, Eos % (Auto) 3.8, Baso % (Auto) 0.7, Neut # (Auto) 7.4, Lymph # (Auto) 3.3, [place] # (Auto) 1.0, Eos # (Auto) 0.5 H, Baso # (Auto) 0.1, PT 11.4, INR 1.03, APTT 28.3, Sodium 138, Potassium 3.6, Chloride 106, Carbon Dioxide 26, Anion Gap 9.6, BUN 17, Creatinine 1.10, Estimated Creat Clear 137, Estimated GFR 81, Est GFR ( Amer) 98, Glucose 111 H, Calcium 9.4, Total Bilirubin 0.5, AST 47, ALT 74, Alkaline Phosphatase 70, C-Reactive Protein 22.0 H, Total Protein 8.0, Albumin 4.8, Globulin 3.2, Albumin/Globulin Ratio 1.5, Lipase 96 03/26/25 19:19: Urine Color Yellow, Urine Appearance Clear, Urine pH 6.0, Ur Specific [place] >= 1.030, Urine Protein Negative, Urine Glucose (UA) Trace, Urine Ketones Negative, Urine Blood Negative, Urine Nitrate Negative, Urine Bilirubin Negative, Urine Urobilinogen 0.2, Ur Leukocyte Esterase Negative, Urine RBC None, Urine WBC Occasional, Ur Squamous Epith Cells None, Urine Bacteria Trace 03/26/25 19:21: Lactate 1.1 03/26/25 19:07 03/26/25 19:07 Orders (Tests/Meds): ED MEDICATIONS Generic Name Dose Route Start Last Admin Trade Name Freq PRN Reason Stop Dose Admin Metronidazole 500 mg in 100 mls @ 100 mls/hr 03/26/25 20:35 03/26/25 21:02 Flagyl 500mg/100ml Ivpb IV 03/26/25 21:34 100 mls/hr ONCE ONE Administration Discontinued Medications Generic Name Dose Route Start Last Admin Trade Name Freq PRN Reason Stop Dose Admin Cefepime HCl 2 gm/ Sodium 100 mls @ 200 mls/hr 03/26/25 20:35 03/26/25 20:44 Chloride IV 03/26/25 21:04 200 mls/hr ONCE ONE Administration Iopamidol 75 ml 03/26/25 19:32 03/26/25 19:32 Iopamidol-370 (76%);100ml Bottle IV 03/26/25 19:33 75 ml ONCE ONE Administration Morphine Sulfate 4 mg 03/26/25 19:05 03/26/25 19:18 Morphine 4mg/Ml Syringe IV 03/26/25 19:06 4 mg ONCE ONE Administration Ondansetron HCl 4 mg 03/26/25 19:05 03/26/25 19:17 Ondansetron 4mg/2ml Vial IV 03/26/25 19:06 4 mg ONCE ONE Administration Sodium Chloride 10 ml 03/26/25 19:32 03/26/25 19:32 Sodium Chloride 0.9% 10ml Syr (Rad Only) IV 03/26/25 19:33 10 ml ONCE ONE Administration ORDERS Category Date Time Status Type and Screen Stat BBK 03/26/25 20:[address] abdomen pelvis w con Stat Cat Scan 03/26/25 19:05 Completed CBC w/Auto Diff [Complete Blood Count Auto Diff] Stat Lab 03/26/25 19:07 Completed CMP [Comprehensive Metabolic Panel] Stat Lab 03/26/25 19:07 Completed CRP [C-Reactive Protein] Stat Lab 03/26/25 19:07 Completed Lactic Acid Stat Lab 03/26/25 19:21 Completed Lipase Stat Lab 03/26/25 19:07 Completed PT INR [Prothrombin Time INR] Stat Lab 03/26/25 19:07 Completed PTT [Activated Partial Thrombo Time] Stat Lab 03/26/25 19:07 Completed UA [Urinalysis and Microscopic] Stat Lab 03/26/25 19:19 Completed Medical Decision Narrative: Kristian Crespo is a 24y male with no significant past medical history who presents the emergency department for complaints of right lower quadrant pain. Patient states that starting 1 week ago, he had pain in his right lower quadrant that intermittently radiates to his right flank. He states that the pain is worsened with walking and riding in a car. He states that starting this morning at approximately 5 AM, the pain became severe. He describes it as somebody reaching inside and twisting something . He denies any testicular pain or swelling. He denies any urinary symptoms. He states he has had some nausea but no vomiting. He denies any recent constipation or diarrhea. He denies any previous abdominal surgeries. He reports a temperature of 99 ?F earlier today. On arrival, patient is normotensive, heart rate within normal limits, breathing comfortably on room air with appropriate oxygen saturation. Afebrile. Physical exam, stated above, revealed an overall well-appearing male in no distress. He has some mild tenderness in the right upper quadrant and epigastric region as well. No distention. He has more focal tenderness in the right lower quadrant with guarding but no peritonitis. Positive tenderness at McBurney's point. Positive psoas and obturator sign. Patient does state that bumps in the car make the pain significantly worse. Differential diagnosis includes, but is not limited to: Appendicitis, ureterolithiasis, urinary tract infection, diverticulitis, constipation, mesenteric adenitis, low concern for testicular torsion as patient has had no testicular pain or swelling. The most morbid conditions were considered and workup was based on these. Workup in the emergency room included: CT abdomen/pelvis with IV contrast, CBC with differential, CMP, CRP, urinalysis, lactic acid Patient's workup shows leukocytosis of 12.3, otherwise unremarkable CBC. CMP grossly unremarkable nonactionable. CRP is elevated at 22. Urinalysis without evidence of infection or blood. CT imaging interpreted by me personally shows findings concerning for appendicitis with calcification within the appendix and a distended appendix, measuring up to 11 mm with mild periappendiceal inflammatory changes. No evidence of appendix perforation or abscess. See final radiology report for details. Given this, I discussed patient's case with Dr. Rivas with the general surgery team with plan to take the patient to the operating room. Will obtain preop labs, PT/INR, PTT as well as type and screen. Will also treat patient with IV cefepime and metronidazole (consider Zosyn, however patient has a penicillin allergy). I discussed this plan with the patient and he was in agreement with plan as stated above. Critical Care Critical Care Time Critical Care Time: No
[2025-03-26 19:15] LABS: Hematocrit 44.6 % (42.0-52.0); Hemoglobin 15.2 g/dL (14.1-18.0); Immature Granulocytes % 0.3 %; Mean Corpuscular HGB Conc 34.1 g/dL (31.8-35.4); Mean Corpuscular Hemoglobin 28.7 pg (27.0-31.2); Mean Corpuscular Volume 84.2 fl (80-94); Nucleated Red Blood Cells % 0 %; Platelet Count 324 K/mm3 (142-424); Red Blood Count 5.30 M/mm3 (4.60-6.20); Red Cell Distribution Width-SD 35.8 fL; White Blood Count 12.3 K/mm3 (4.8-10.8)
[2025-03-26] MEDS: ONDANSETRON 4MG/2ML VIAL 4 MG IV ×2 (19:17→23:45)
[2025-03-26] MEDS: MORPHINE 4MG/ML SYRINGE 4 MG IV (19:18)
[2025-03-26 19:24] LABS: Albumin Level 4.8 g/dl (3.5-5.0); Chloride 106 mmol/L (98-107)
[2025-03-26 19:25] LABS: Potassium 3.6 mmoL/L (3.5-5.1); Sodium 138 mmol/L (136-145)
[2025-03-26 19:26] LABS: Microscopic, Urine URINE MICROSCOPIC (MICROSCOPIC)
[2025-03-26 19:27] LABS: Alanine Aminotransferase 74 U/L (12-78); Albumin/Globulin Ratio 1.5 (1.1-1.8); Alkaline Phosphatase 70 U/L (38-126); Anion Gap 9.6 mEq/L (5-15); Aspartate Amino Transferase 47 U/L (17-59); Bilirubin,Total 0.5 mg/dl (0.2-1.3); Blood Urea Nitrogen 17 mg/dl (9-20); Carbon Dioxide 26 mmol/L (22.0-30.0); Creatinine Clearance Estimated 137 mL/min (50-200); Creatinine,Serum 1.10 mg/dl (0.66-1.25); Estimated Glomerular Filt Rate 81 ml/min (>60); GFR (African American) 98 ML/MIN (>60); Globulin 3.2 g/dL (1.3-3.2); Total Protein,Serum 8.0 g/dl (6.3-8.2)
[2025-03-26 19:28] LABS: Calcium 9.4 mg/dl (8.4-10.2); Glucose 111 mg/dl (74-100); Lipase 96 U/L (23-300)
[2025-03-26 19:28] LABS: Bilirubin,Urine Negative (Negative); Color,Urine YELLOW (Yellow); Glucose,Urine (UA) TRACE (Negative); Ketones,Urine Negative (Negative); Leukocyte Esterase,Urine Negative (Negative); PH,Urine 6.0 (5.0-8.5); Protein,Urine Negative (Negative); Specific Gravity, Urine >= 1.030 (1.005-1.030); Urobilinogen,Urine 0.2 EU/dl (0.2)
[2025-03-26] MEDS: SODIUM CHLORIDE 0.9% 10ML SYR (RAD ONLY) 10 ML IV (19:32)
[2025-03-26] MEDS: IOPAMIDOL-370 (76%);100ML BOTTLE 75 ML IV (19:32)
[2025-03-26 19:33] LABS: C-Reactive Protein 22.0 mg/L (0-4)
[2025-03-26 19:44] LABS: WBC,Urine Occasional #/hpf (0-3)
[2025-03-26 19:45] LABS: Bacteria,Urine Trace /lpf
--- NOTE | 2025-03-26 20:33 | PC.NURSE ---
Pt changing into a gown made aware all jewelry needs to be off. Pt requested his hold onto his ring. Pt's belongings placed into a bag with name on bag
[2025-03-26] MEDS: CEFEPIME HCL 2 GM in 0.9 % SODIUM CHLORIDE 100 ML IV (20:44)
[2025-03-26 20:58] LABS: Activated Partial Thrombo Time 28.3 seconds (22.8-30.6); INR 1.03 (0.9-1.1); Prothrombin Time 11.4 seconds (10.1-12.5)
--- NOTE | 2025-03-26 20:59 | P.HP_ITS ---
HPI HPI HPI: Patient is a 24-year-old male with a history of asthma. He states that he has had intermittent lower abdominal pain for about a week. However, at approximately 5 AM this morning on 03/26/2025 he had acute severe exacerbation. He ultimately presented to the emergency department in the evening of 03/26/2025. He had clinical findings suspicious for appendicitis. He had a mild leukocytosis. He has CT scan performed which revealed findings consistent with appendicitis. Surgical consultation was obtained. [facility] Disclaimer: The information contained in this section may have been updated after the patient was seen, as this information can be updated by other users. Medical History Anxiety Asthma Social History Smoking Status: Never smoker alcohol intake: never substance use type: marijuana current occupational status: other Travel in the last 8 weeks?: None household members: other housing: other number of children: 0 Have you lived/traveled outside US in past 30 days?: No Contact w/someone who lives/traveled outside US past 30 days?: No Exposure to someone with infectious disease in past 14 days?: No Do you have a fever (greater than 100.4 F or 38 C)?: No Have you tested positive for COVID-19?: No Exposed to someone with COVID-19 in past 14 days?: No Do you have a sore throat?: No Do you have a cough?: No Do you have any weakness?: No Do you have any diarrhea?: No Are you experiencing any unusual bleeding?: No Do you have any muscle aches/pain?: No Do you have any abdominal pain?: No Are you experiencing loss of taste or smell?: No Other Medical History Have you received the Flu Vaccine for this season: No Have you received the Pneumonia Vaccine: No Meds Home Medications and Allergies Home Medications ?Medication ?Instructions ?Recorded ?Confirmed ?Type albuterol sulfate 90 mcg/actuation 2 puff inhalation Q ID PRN 07/18/24 Rx aerosol inhaler shortness of breath or wheez ing #8.5 grams azithromycin 250 mg tablet See Rx Instructions PO .COM PLEX 5 07/18/24 Rx (Zithromax Z-Dominic) days #6 tabs guaifenesin 1,200 mg tablet, 1,200 mg PO Q12H PRN mario estion 07/18/24 Rx extended release 12 hr (Mucinex) #20 tabs methylprednisolone 4 mg tablets in See Rx Instructions .Route 07/18/24 Rx a dose pack (Medrol (Dominic)) .COMPLEX 6 days #21 tabs New Prescriptions to Start Prescriptions: Allergies Allergy/AdvReac Type Severity Reaction Status Date / Time Penicillins (PENICILLINS) Allergy Unknown Verified 01/07/24 11:54 Exam Data for Last 24 hours Vital signs and Labs for Last 24 Hours: Temp Pulse Resp BP Pulse Ox O2 Del Method 98.2 F 96 H 20 143/83 H 99 Room Air 03/26/25 20:19 03/26/25 20:19 03/26/25 20:19 03/26/25 20:19 03/26/25 20:15 03/26/25 20:19 Laboratory Results - last 24 hr 03/26/25 19:07: WBC 12.3 H, RBC 5.30, Hgb 15.2, Hct 44.6, MCV 84.2, MCH 28.7, MCHC 34.1, RDW 11.9, Plt Count 324, MPV 9.1, Neut % (Auto) 60.3, Lymph % (Auto) 26.9, [place] % (Auto) 8.0, Eos % (Auto) 3.8, Baso % (Auto) 0.7, Neut # (Auto) 7.4, Lymph # (Auto) 3.3, [place] # (Auto) 1.0, Eos # (Auto) 0.5 H, Baso # (Auto) 0.1, PT 11.4, INR 1.03, APTT 28.3, Sodium 138, Potassium 3.6, Chloride 106, Carbon Dioxide 26, Anion Gap 9.6, BUN 17, Creatinine 1.10, Estimated Creat Clear 137, Estimated GFR 81, Est GFR ( Amer) 98, Glucose 111 H, Calcium 9.4, Total Bilirubin 0.5, AST 47, ALT 74, Alkaline Phosphatase 70, C-Reactive Protein 22.0 H, Total Protein 8.0, Albumin 4.8, Globulin 3.2, Albumin/Globulin Ratio 1.5, Lipase 96 03/26/25 19:19: Urine Color Yellow, Urine Appearance Clear, Urine pH 6.0, Ur Specific [place] >= 1.030, Urine Protein Negative, Urine Glucose (UA) Trace, Urine Ketones Negative, Urine Blood Negative, Urine Nitrate Negative, Urine Bilirubin Negative, Urine Urobilinogen 0.2, Ur Leukocyte Esterase Negative, Urine RBC None, Urine WBC Occasional, Ur Squamous Epith Cells None, Urine Bacteria Trace 03/26/25 19:21: Lactate 1.1 I & O for Last 24 hours: Intake & Output 03/24/25 03/25/25 03/26/25 03/27/25 11:59 11:59 11:59 11:59 Weight 210 lb Constitutional Constitutional: no acute distress *Routine HEENT Exam Head: Present normocephalic Eye: Present EOMI and PERRL ENT: Present mucous membranes moist *Routine Neck Exam Neck: Present supple; Absent lymphadenopathy *Routine Respiratory Exam Respiratory: Present CTA bilaterally *Routine Cardiovascular Exam Cardiovascular: Present RRR *Routine Abdominal Exam Abdominal: Present soft and tenderness Comments: He has tenderness with guarding in the right lower quadrant. *Routine Rectal Exam Rectal:: deferred *Routine Genitalia Exam Genitalia:: deferred *Routine Extremities Exam Extremities: Absent cyanosis, clubbing or edema *Routine Skin Exam Skin: Present warm; Absent rash *Routine Neurological Exam Neurological: Present alert and oriented X3 Results Results Lab Results Last 24 Hours:: Laboratory Results - last 24 hr 03/26/25 19:07: WBC 12.3 H, RBC 5.30, Hgb 15.2, Hct 44.6, MCV 84.2, MCH 28.7, MCHC 34.1, RDW 11.9, Plt Count 324, MPV 9.1, Neut % (Auto) 60.3, Lymph % (Auto) 26.9, [place] % (Auto) 8.0, Eos % (Auto) 3.8, Baso % (Auto) 0.7, Neut # (Auto) 7.4, Lymph # (Auto) 3.3, [place] # (Auto) 1.0, Eos # (Auto) 0.5 H, Baso # (Auto) 0.1, PT 11.4, INR 1.03, APTT 28.3, Sodium 138, Potassium 3.6, Chloride 106, Carbon Dioxide 26, Anion Gap 9.6, BUN 17, Creatinine 1.10, Estimated Creat Clear 137, Estimated GFR 81, Est GFR ( Amer) 98, Glucose 111 H, Calcium 9.4, Total Bilirubin 0.5, AST 47, ALT 74, Alkaline Phosphatase 70, C-Reactive Protein 22.0 H, Total Protein 8.0, Albumin 4.8, Globulin 3.2, Albumin/Globulin Ratio 1.5, L ipase 96 03/26/25 19:19: Urine Color Yellow, Urine Appearance Clear, Urine pH 6.0, Ur Specific [place] >= 1.030, Urine Protein Negative, Urine Glucose (UA) Trace, Urine Ketones Negative, Urine Blood Negative, Urine Nitrate Negative, Urine Bilirubin Negative, Urine Urobilinogen 0.2, Ur Leukocyte Esterase Negative, Urine RBC None, Urine WBC Occasional, Ur Squamous Epith Cells None, Urine Bacteria Trace 03/26/25 19:21: Lactate 1.1 Assessment and Plan *Assessment and plan (1) Acute appendicitis: Status: Acute Category: Medical Code(s): K35.80 - Unspecified acute appendicitis Plan Plan to proceed with laparoscopic possibly open appendectomy. I explained the nature and details of the proposed procedure along with the associated risks and expected outcome. He understands and agrees to proceed. Plan for admission postoperatively regardless.
[2025-03-26] MEDS: METRONIDAZ/SOD CHL 500 MG/100 ML PIGGYBACK 100 MG IV (21:02)
--- NOTE | 2025-03-26 21:03 | P.HP_ITS ---
<Statement entered by Cheo Mendez MD - 03/28/25 15:10> Personally evaluated patient and agree with plan of care as outlined by the PHOTOGRAPHIC EQUIPMENT MECHANIC. History of Present Illness *Admission Date: 03/26/25 *Reason for visit:: Abdominal pain *History of present illness: This is a 24-year-old male who has a past medical history significant for asthma who presents with a chief complaint of abdominal pain. Due to his symptoms, patient presents to the emergency room for evaluation. While in the emergency room, CT scan of the abdomen pelvis was consistent with acute appendicitis without evidence of perforation or abscess. As result of these findings, patient has been admitted for further management. During my evaluation of the patient, patient states he has had intermittent right lower abdominal pain for the last week that progressively got worse today at work. He reports having some nausea but no emesis. Moreover, he reports that his symptoms started at 5 AM and the pain became really severe. This prompted him to present to the emergency room for evaluation. Patient has been denying any subjective fever; moreover, he denies any lightheadedness, dizziness, rigors, emesis, diarrhea, chest pain, or shortness of breath. Additional pertinent vitals obtained include a white blood cell count of 12.3, CRP of 22, and blood glucose of 111. [facility] Disclaimer: The information contained in this section may have been updated after the patient was seen, as this information can be updated by other users. Medical History Anxiety Asthma Social History Smoking Status: Never smoker alcohol intake: never substance use type: marijuana current occupational status: other Travel in the last 8 weeks?: None household members: other housing: other number of children: 0 Have you lived/traveled outside [place] in past 30 days?: No Contact w/someone who lives/traveled outside US past 30 days?: No Exposure to someone with infectious disease in past 14 days?: No Do you have a fever (greater than 100.4 F or 38 C)?: No Have you tested positive for COVID-19?: No Exposed to someone with COVID-19 in past 14 days?: No Do you have a sore throat?: No Do you have a cough?: No Do you have any weakness?: No Do you have any diarrhea?: No Are you experiencing any unusual bleeding?: No Do you have any muscle aches/pain?: No Do you have any abdominal pain?: No Are you experiencing loss of taste or smell?: No Other Medical History Have you received the Flu Vaccine for this season: No Have you received the Pneumonia Vaccine: No Review of Systems Review of Systems Review of systems:: pertinent systems reviewed and negative unless documented below Constitutional Constitutional: Reports system reviewed and no additional complaints, except as documented Eyes Eyes: Reports system reviewed and no additional complaints, except as documented ENT Ears, Nose, Mouth, and Throat: Reports system reviewed and no additional complaints, except as documented *Cardiovascular Cardiovascular: Reports system reviewed and no additional complaints, except as documented *Respiratory Respiratory: Reports system reviewed and no additional complaints, except as documented *Gastrointestinal Gastrointestinal: Reports abdominal pain and Reports nausea *Genitourinary Genitourinary: Reports system reviewed and no additional complaints, except as documented *Musculoskeletal Musculoskeletal: Reports system reviewed and no additional complaints, except as documented Integumentary/Breasts Skin/Breast: Reports system reviewed and no additional complaints, except as documented *Neurologic Neurologic: Reports system reviewed and no additional complaints, except as documented Psychiatric Psychiatric: Reports system reviewed and no additional complaints, except as documented Endocrine Endocrine: Reports system reviewed and no additional complaints, except as documented Hematologic/Lymphatic Hematologic/Lymphatic: Reports system reviewed and no additional complaints, except as documented Allergic/Immunologic Allergic/Immunologic: Reports system reviewed and no additional complaints, except as documented Meds Home Medications and Allergies Home Medications ?Medication ?Instructions ?Recorded ?Confirmed ?Type albuterol sulfate 90 mcg/actuation 2 puff inhalation Q ID PRN 07/18/24 Rx aerosol inhaler shortness of breath or wheez ing #8.5 grams azithromycin 250 mg tablet See Rx Instructions PO .COM PLEX 5 07/18/24 Rx (Zithromax Z-Dominic) days #6 tabs guaifenesin 1,200 mg tablet, 1,200 mg PO Q12H PRN mario estion 07/18/24 Rx extended release 12 hr (Mucinex) #20 tabs methylprednisolone 4 mg tablets in See Rx Instructions .Route 07/18/24 Rx a dose pack (Medrol (Dominic)) .COMPLEX 6 days #21 tabs New Prescriptions to Start Prescriptions: Allergies Allergy/AdvReac Type Severity Reaction Status Date / Time Penicillins (PENICILLINS) Allergy Unknown Verified 01/07/24 11:54 Exam Data for Last 24 hours Vital signs and Labs for Last 24 Hours: Temp Pulse Resp BP Pulse Ox O2 Del Method 98.2 F 96 H 20 143/83 H 99 Room Air 03/26/25 20:19 03/26/25 20:19 03/26/25 20:19 03/26/25 20:19 03/26/25 20:15 03/26/25 20:19 Laboratory Results - last 24 hr 03/26/25 19:07: WBC 12.3 H, RBC 5.30, Hgb 15.2, Hct 44.6, MCV 84.2, MCH 28.7, MCHC 34.1, RDW 11.9, Plt Count 324, MPV 9.1, Neut % (Auto) 60.3, Lymph % (Auto) 26.9, [place] % (Auto) 8.0, Eos % (Auto) 3.8, Baso % (Auto) 0.7, Neut # (Auto) 7.4, Lymph # (Auto) 3.3, [place] # (Auto) 1.0, Eos # (Auto) 0.5 H, Baso # (Auto) 0.1, PT 11.4, INR 1.03, APTT 28.3, Sodium 138, Potassium 3.6, Chloride 106, Carbon Dioxide 26, Anion Gap 9.6, BUN 17, Creatinine 1.10, Estimated Creat Clear 137, Estimated GFR 81, Est GFR ( Amer) 98, Glucose 111 H, Calcium 9.4, Total Bilirubin 0.5, AST 47, ALT 74, Alkaline Phosphatase 70, C-Reactive Protein 22.0 H, Total Protein 8.0, Albumin 4.8, Globulin 3.2, Albumin/Globulin Ratio 1.5, Lipase 96 03/26/25 19:19: Urine Color Yellow, Urine Appearance Clear, Urine pH 6.0, Ur Specific [place] >= 1.030, Urine Protein Negative, Urine Glucose (UA) Trace, Urine Ketones Negative, Urine Blood Negative, Urine Nitrate Negative, Urine Bili marroquin Negative, Urine Urobilinogen 0.2, Ur Leukocyte Esterase Negative, Urine RBC None, Urine WBC Occasional, Ur Squamous Epith Cells None, Urine Bacteria Trace 03/26/25 19:21: Lactate 1.1 I & O for Last 24 hours: Intake & Output 03/23/25 03/24/25 03/25/25 03/26/25 23:59 23:59 23:59 23:59 Weight 95.254 kg Constitutional Constitutional: no acute distress and cooperative *Routine HEENT Exam Head: Present normocephalic and atraumatic Eye: Present EOMI, PERRL and normal accommodation ENT: Present mucous membranes moist *Routine Neck Exam Neck: Present supple, full ROM and trachea midline *Routine Respiratory Exam Respiratory: Present CTA bilaterally, normal respiratory effort, able to speak in complete sentences and symmetric chest movement *Routine Cardiovascular Exam Cardiovascular: Present RRR and Normal S1 *Routine Abdominal Exam Abdominal: Present normoactive bowel sounds and tenderness *Routine Rectal Exam Rectal:: deferred *Routine Genitalia Exam Genitalia:: deferred *Routine Extremities Exam Extremities: Present full ROM, pulses intact and normal capillary refill Routine Back/Spine/Pelvis Exam Back/Spine: Present full ROM *Routine Skin Exam Skin: Present intact, dry, warm and normal turgor *Routine Neurological Exam Neurological: Present alert, oriented X3, CN II-XII intact, moving all extremities and normal speech Routine Psychiatric Exam Psychiatric: Present normal affect, normal thought process, cooperative, good insight and good judgment H&P: Result Impressions 24-year-old male with a past medical history who presents with a weeklong duration of intermittent abdominal pain was noted to have acute appendicitis its uncomplicated on CT scan of abdomen and pelvis. Patient is going to be taken to the OR this evening. Assessment and Plan *Assessment and plan (1) Acute appendicitis: Status: Acute Qualifiers: Acute appendicitis type: unspecified acute appendicitis type Qualified Code(s): K35.80 - Unspecified acute appendicitis Category: Medical Code(s): K35.80 - Unspecified acute appendicitis (2) Leukocytosis: Status: Acute Qualifiers: Leukocytosis type: unspecified Qualified Code(s): D72.829 - Elevated white blood cell count, unspecified Category: Medical Code(s): D72.829 - Elevated white blood cell count, unspecified Plan Assessment: Acute appendicitis Leukocytosis - Patient is going to be taken to the OR --We will manage patient postop - Will consider Zosyn 3.375 g IV every 6 hours -Patient did receive 2 g cefepime and metronidazole 500 mg while in emergency room - Keep patient n.p.o. - Consult general surgeon Plan: Will admit patient to the MedSurg unit postoperatively Will give 4 mg of Zofran IV push every 8 hours Obtain CBC/BMP in a.m. More than likely patient will be discharged home sometime tomorrow 2 mg morphine IV push every 4 hours as needed severe pain D5 half-normal saline at 75 mL an hour 40 mg Lovenox subcu daily for DVT prophylax 5 mg [place] p.o. every 4 hours for moderate pain I did speak with surgeon concerning case and we appreciate any further input Full code I will discussed this case with attending physician Dr. Mendez and on the fourth morning,
[2025-03-26] MEDS: LIDOCAINE 1% 20ML MDV 20 ML (21:42)
[2025-03-26] MEDS: RINGERS SOLUTION,LACTATED 3,000 ML 999 ML IR (21:42)
--- NOTE | 2025-03-26 22:40 | EXP.OP.NOTE ---
Date of procedure: 03/26/25 Pre-op Diagnosis:: Acute appendicitis Post-op Diagnosis:: Same Procedure performed:: Laparoscopic appendectomy Surgeon:: Vikas Rivas MD UNIFIED COMMUNICATIONS ARCHITECT:: Jay Greenwood Anesthesia: GETA Estimated blood loss (mL): 10 Operative findings:: He had a thickened inflamed nonsuppurative nonperforated appendicitis Operative note:: Consent was obtained patient was taken to the operating room. He was given preoperative intravenous antibiotics. In the operating room he was placed in a supine position. General anesthesia was induced via endotracheal tube. Kuhn catheter was placed. Abdomen was prepped and draped in the standard surgical fashion. Subumbilical skin incision was made and while performing abdominal wall lift Veress needle was inserted. CO2 pneumoperitoneum was achieved to 15 mmHg. 12 mm optical trocar was inserted at the umbilicus. Intraperitoneal contents were visualized. He was initially placed in Trendelenburg and left side down. 5 mm trocar was inserted in the suprapubic location under laparoscopic visualization. Additional 5 mm trocar was inserted in the right upper abdomen. 10 mm laparoscope was replaced with a 5 mm 30 degree angled laparoscope. Terminal ileum was retracted medially. The appendix was identified. There is some fatty infiltration around the appendix. The mesoappendix was carefully divided with ultrasonic harmonic humaira with care taken to coagulate the appendiceal artery in the process. Thorough meticulous dissection was carried down to the appendiceal base. Proximal body of the appendix was somewhat thickened but the base was relatively uninflamed. Appendix was divided at its base with an endoscopic MICHAEL linear cutting stapling device. Appendix was placed within an Endo Catch retrieval device and removed from the peritoneal cavity via the umbilical trocar site. Appendiceal staple line was inspected for hemostasis and integrity which was assured. Limited irrigation and suctioning was performed. Trocars removed the CO2 pneumoperitoneum was evacuated. Fascia at the umbilicus was closed with a 0 Vicryl suture. Local anesthetic was infiltrated. Skin incisions were closed with 4-0 Monocryl in a subcuticular fashion. 5-0 plain gut interrupted sutures were placed in the skin in the right upper abdominal wall 5 mm trocar site. Steri-Strips and dressings were applied. Condition: stable Disposition: PACU Complications:: None immediately apparent
--- NOTE | 2025-03-26 22:57 | EXP.ANES.I ---
[facility] Anesthesia Record Part I Anesthesia Record I Intake, IV Amount: 700 Hydration: Adequate Estimated blood loss (mL): 0 Urine output (mL): 200 Blood Products used (#): none Blood Pressure: 153/87 SaO2: 92 Pulse Rate: 84 Airway Patency: Patent Respiratory Rate: 16 Temperature: 97.0 F Patient is:: Nasal O2, Stable and Somnolent Stable to PACU at:: 22:52
--- NOTE | 2025-03-26 23:32 | PC.NURSE ---
pt arrived to floor via bed from PACU at 2330.
[2025-03-26 23:42] LABS: Microscopic,Cath URINE MICROSCOPIC (MICROSCOPIC)
[2025-03-26 23:44] LABS: Appearance,Urine/Cath CLEAR (Clear); Bilirubin,Cath Negative (Negative); Blood, Urine/Cath Negative (Negative); Color,Urine/Cath YELLOW (Yellow); Glucose,Urine/Cath (UA) Negative (Negative); Ketones,Urine/Cath Negative (Negative); Leukocyte Esterase,Cath Negative (Negative); Nitrate,Cath Negative (Negative); PH,Urine/Cath 6.0 (5.0-8.5); Protein,Urine/Cath Negative (Negative); Specific Gravity, Urine/Cath 1.020 (1.005-1.030); Urobilinogen,Cath 0.2 EU/dl (0.2)
[2025-03-26 23:48] LABS: Squamous Epithelial Ur./Cath Occasional #/hpf (0-5)
[2025-03-27] VITALS (9 sets, daily range): BP systolic 97–127; BP diastolic 49–70; PULSE 72–96; RESP 16–18; TEMP 36.4–36.7; O2SAT 76–97; BMI 34.2
[2025-03-27] MEDS: HYDROCODONE/APAP 5/325 MG TABLET 1 TAB PO (00:09)
[2025-03-27] MEDS: LACTATED RINGERS 1000ML 1,000 ML 125 ML IV (00:10)
--- NOTE | 2025-03-27 01:52 | PC.NURSE ---
Pt new admit this shift. Post op lap appendectomy. Pt AOx4, pleasant. VSS. Receiving LR at 125mL/hr. Had some pain and nausea that were relieved with prn zofran and norco. x3 lap sites are c/d/i with minimal sanguinous drainage. Currently resting in bed with eyes open. Respirations even and unlabored. Bed is low, locked and call light is in reach. Pt denies needs at this time.
[2025-03-27 06:48] LABS: Hematocrit 41.4 % (42.0-52.0); Immature Granulocytes % 0.4 %; Mean Corpuscular HGB Conc 32.9 g/dL (31.8-35.4); Mean Corpuscular Hemoglobin 28.0 pg (27.0-31.2); Mean Corpuscular Volume 85.4 fl (80-94); Nucleated Red Blood Cells % 0 %; Platelet Count 300 K/mm3 (142-424); Red Blood Count 4.85 M/mm3 (4.60-6.20); Red Cell Distribution Width-SD 36.6 fL; White Blood Count 10.2 K/mm3 (4.8-10.8)
[2025-03-27 06:57] LABS: Chloride 106 mmol/L (98-107)
[2025-03-27 06:58] LABS: Potassium 4.5 mmoL/L (3.5-5.1); Sodium 135 mmol/L (136-145)
[2025-03-27 07:01] LABS: Anion Gap 10.5 mEq/L (5-15); Blood Urea Nitrogen 13 mg/dl (9-20); Calcium 8.9 mg/dl (8.4-10.2); Carbon Dioxide 23 mmol/L (22.0-30.0); Creatinine Clearance Estimated 143 mL/min (50-200); Creatinine,Serum 1.10 mg/dl (0.66-1.25); Estimated Glomerular Filt Rate 81 ml/min (>60); GFR (African American) 98 ML/MIN (>60); Glucose 148 mg/dl (74-100)
--- NOTE | 2025-03-27 07:25 | EXP.ANES.II ---
[facility] Anesthesia Record Part II Anesthesia Record Part II Discharge Time: 23:22 Destination: Medical Surgical Department PACU nurse assessment reviewed?: Yes Patient Condition:: Good Anesthesia Complications:: None Swallowing reflex intact?: Yes Airway Patency: Patent Cyanosis?: No Blood Pressure: 122/70 SaO2: 76 Respiratory Rate: 17 Pulse Rate: 96 Temperature: 97.5 F Mental Status: Alert & Oriented Pain level:: 0 Nausea and/or vomitting:: None Intake, IV Amount: 0 Hydration: Adequate
[2025-03-27 07:41] LABS: Hemoglobin 13.8 g/dL (14.1-18.0)
--- NOTE | 2025-03-27 08:17 | HMH.PHAINT1 ---
Pharmacy Intervention Comments: MEDICATION RECONCILIATION COMPLETED ON PATIENT USING EXTERNAL FILL HISTORY FROM PHARMACY. -CARLOS VEGA, HIREND
--- NOTE | 2025-03-27 09:25 | P.PN_ITS ---
Subjective *Date: 03/27/25 *Time: :25 Exam Data for Last 24 hours Vital signs and Labs for Last 24 Hours: Temp Pulse Resp BP Pulse Ox O2 Del Method O2 Flow Rate 98.1 F 83 16 127/63 97 Room Air 2 03/27/25 07:41 03/27/25 07:41 03/27/25 07:41 03/27/25 07:41 03/27/25 07:41 03/27/25 07:41 03/26/25 23:22 Laboratory Results - last 24 hr 03/26/25 19:07: WBC 12.3 H, RBC 5.30, Hgb 15.2, Hct 44.6, MCV 84.2, MCH 28.7, MCHC 34.1, RDW 11.9, Plt Count 324, MPV 9.1, Neut % (Auto) 60.3, Lymph % (Auto) 26.9, [place] % (Auto) 8.0, Eos % (Auto) 3.8, Baso % (Auto) 0.7, Neut # (Auto) 7.4, Lymph # (Auto) 3.3, [place] # (Auto) 1.0, Eos # (Auto) 0.5 H, Baso # (Auto) 0.1, PT 11.4, INR 1.03, APTT 28.3, Sodium 138, Potassium 3.6, Chloride 106, Carbon Dioxide 26, Anion Gap 9.6, BUN 17, Creatinine 1.10, Estimated Creat Clear 137, Estimated GFR 81, Est GFR ( Amer) 98, Glucose 111 H, Calcium 9.4, Total B ilirubin 0.5, AST 47, ALT 74, Alkaline Phosphatase 70, C-Reactive Protein 22.0 H , Total Protein 8.0, Albumin 4.8, Globulin 3.2, Albumin/Globulin Ratio 1.5, Lipase 96 03/26/25 19:19: Urine Color Yellow, Urine Appearance Clear, Urine pH 6.0, Ur Specific [place] >= 1.030, Urine Protein Negative, Urine Glucose (UA) Trace, Urine Ketones Negative, Urine Blood Negative, Urine Nitrate Negative, Urine Bilirubin Negative, Urine Urobilinogen 0.2, Ur Leukocyte Esterase Negative, Urine RBC None, Urine WBC Occasional, Ur Squamous Epith Cells None, Urine Bacteria Trace 03/26/25 19:21: Lactate 1.1 03/26/25 20:30: Blood Type A Positive, Antibody Screen Negative 03/26/25 21:25: Urine Color Yellow, Urine Appearance Clear, Urine pH 6.0, Ur Specific [place] 1.020, Urine Protein Negative, Urine Glucose (UA) Negative, Urine Ketones Negative, Urine Blood Negative, Urine Nitrate Negative, Urine Bi lirubin Negative, Urine Urobilinogen 0.2, Ur Leukocyte Esterase Negative, Ur Squamous Epith Cells Occasional 03/27/25 05:42: WBC 10.2, RBC 4.85, Hgb 13.8 L, Hct 41.4 L, MCV 85.4, MCH 28.0, MCHC 32.9, RDW 11.8, Plt Count 300, MPV 10.1, Neut % (Auto) 86.1 H, Lymph % (Auto) 11.9, [place] % (Auto) 1.5 L, Eos % (Auto) 0.0 L, Baso % (Auto) 0.1, Neut # (Auto) 8.8 H, Lymph # (Auto) 1.2, [place] # (Auto) 0.2, Eos # (Auto) 0.0, Baso # (Auto) 0.0, Sodium 135 L, Potassium 4.5 D, Chloride 106, Carbon Dioxide 23, Anion Gap 10.5, BUN 13, Creatinine 1.10, Estimated Creat Clear 143, Estimated GFR 81, Est GFR ( Amer) 98, Glucose 148 H D, Calcium 8.9 I & O for Last 24 hours: Intake & Output 03/24/25 03/25/25 03/26/25 03/27/25 23:59 23:59 23:59 23:59 Intake Total 800 / 1040 340 / 340 Balance 800 / 1040 340 / 340 Weight 95.254 kg 99.11 kg Assessment and Plan *Assessment and plan (1) Eye abnormalities: Status: Acute Category: Medical Code(s): 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 Left eye noted to have redness on medial portion w/o swelling. Patient reports no change in vision and no pain. Explained symptoms of corneal abrasion and educated to report if experiencing vision changes/pain.
--- NOTE | 2025-03-27 09:37 | EXP.SURG.PN ---
Subjective Narrative: Patient states that he feels much better. No complaints. Did awaken with some left medial scleral hemorrhage. However he denies pain or visual changes. Exam Data for Last 24 hours Vital signs and Labs for Last 24 Hours: Temp Pulse Resp BP Pulse Ox O2 Del Method O2 Flow Rate 98.1 F 83 16 127/63 97 Room Air 2 03/27/25 07:41 03/27/25 07:41 03/27/25 07:41 03/27/25 07:41 03/27/25 07:41 03/27/25 07:41 03/26/25 23:22 Laboratory Results - last 24 hr 03/26/25 19:07: WBC 12.3 H, RBC 5.30, Hgb 15.2, Hct 44.6, MCV 84.2, MCH 28.7, MCHC 34.1, RDW 11.9, Plt Count 324, MPV 9.1, Neut % (Auto) 60.3, Lymph % (Auto) 26.9, [place] % (Auto) 8.0, Eos % (Auto) 3.8, Baso % (Auto) 0.7, Neut # (Auto) 7.4, Lymph # (Auto) 3.3, [place] # (Auto) 1.0, Eos # (Auto) 0.5 H, Baso # (Auto) 0.1, PT 11.4, INR 1.03, APTT 28.3, Sodium 138, Potassium 3.6, Chloride 106, Carbon Dioxide 26, Anion Gap 9.6, BUN 17, Creatinine 1.10, Estimated Creat Clear 137, Estimated GFR 81, Est GFR ( Amer) 98, Glucose 111 H, Calcium 9.4, Total Bilirubin 0.5, AST 47, ALT 74, Alkaline Phosphatase 70, C-Reactive Protein 22.0 H, Total Protein 8.0, Albumin 4.8, Globulin 3.2, Albumin/Globulin Ratio 1.5, Lipase 96 03/26/25 19:19: Urine Color Yellow, Urine Appearance Clear, Urine pH 6.0, Ur Specific [place] >= 1.030, Urine Protein Negative, Urine Glucose (UA) Trace, Urine Ketones Negative, Urine Blood Negative, Urine Nitrate Negative, Urine Bilirubin Negative, Urine Urobilinogen 0.2, Ur Leukocyte Esterase Negative, Urine RBC None, Urine WBC Occasional, Ur Squamous Epith Cells None, Urine Bacteria Trace 03/26/25 19:21: Lactate 1.1 03/26/25 20:30: Blood Type A Positive, Antibody Screen Negative 03/26/25 21:25: Urine Color Yellow, Urine Appearance Clear, Urine pH 6.0, Ur Specific [place] 1.020, Urine Protein Negative, Urine Glucose (UA) Negative, Urine Ketones Negative, Urine Blood Negative, Urine Nitrate Negative, Urine Bilirubin Negative, Urine Urobilinogen 0.2, Ur Leukocyte Esterase Negative, Ur Squamous Epith Cells Occasional 03/27/25 05:42: WBC 10.2, RBC 4.85, Hgb 13.8 L, Hct 41.4 L, MCV 85.4, MCH 28.0, MCHC 32.9, RDW 11.8, Plt Count 300, MPV 10.1, Neut % (Auto) 86.1 H, Lymph % (Auto) 11.9, [place] % (Auto) 1.5 L, Eos % (Auto) 0.0 L, Baso % (Auto) 0.1, Neut # (Auto) 8.8 H, Lymph # (Auto) 1.2, [place] # (Auto) 0.2, Eos # (Auto) 0.0, Baso # (Auto) 0.0, Sodium 135 L, Potassium 4.5 D, Chloride 106, Carbon Dioxide 23, Anion Gap 10.5, BUN 13, Creatinine 1.10, Estimated Creat Clear 143, Estimated GFR 81, Est GFR ( Amer) 98, Glucose 148 H D, Calcium 8.9 I & O for Last 24 hours: Intake & Output 03/24/25 03/25/25 03/26/25 03/27/25 11:59 11:59 11:59 11:59 Intake Total 1140 / 1140 Balance 1140 / 1140 Weight 218 lb 8 oz *Routine Abdominal Exam Abdominal: Present soft; Absent tenderness Comments: Incisions clean and intact. Progress Note: A&P Assessment and plan (1) Eye abnormalities: Status: Acute Assessment and Plan Assessment and Plan for All Diagnoses:: Plan for discharge. I did discuss his changes with anesthesia who evaluated him. This does not seem to be consistent with corneal abrasion. Should be self-limited.
--- NOTE | 2025-03-27 12:08 | P.DS_ITS ---
General Admission date:: 03/26/25 HPI HPI HPI: This is a 24-year-old male who has a past medical history significant for asthma who presents with a chief complaint of abdominal pain. Due to his symptoms, patient presents to the emergency room for evaluation. While in the emergency room, CT scan of the abdomen pelvis was consistent with acute appendicitis without evidence of perforation or abscess. As result of these findings, patient has been admitted for further management. During my evaluation of the patient, patient states he has had intermittent right lower abdominal pain for the last week that progressively got worse today at work. He reports having some nausea but no emesis. Moreover, he reports that his symptoms started at 5 AM and the pain became really severe. This prompted him to present to the emergency room for evaluation. Patient has been denying any subjective fever; moreover, he denies any lightheadedness, dizziness, rigors, emesis, diarrhea, chest pain, or shortness of breath. Additional pertinent vitals obtained include a white blood cell count of 12.3, CRP of 22, and blood glucose of 111. Hospital Course Hospital Course Hospital Course: Kristian Crespo is a 24-year-old male who presented with abdominal pain and was admitted for acute appendicitis. #Acute appendicitis ? General Surgery consulted, s/p laparoscopic appendectomy 03/23/2025. Patient tolerated procedure well. ? Tolerating p.o. intake, ambulating independently. No signs of sepsis. ? Discharged with [place], simethicone. #Subconjunctival hemorrhage ? Evidence in left eye, denies pain, blurry vision, has intact extraocular muscular movements. ? Should be self resolving, continue supportive therapy. Return precaution discussed and agreed upon. #Asthma ? Continue home albuterol as needed. Exam Data for Last 24 hours Vital signs and Labs for Last 24 Hours: Temp Pulse Resp BP Pulse Ox O2 Del Method O2 Flow Rate 98.1 F 83 16 127/63 97 Room Air 2 03/27/25 07:41 03/27/25 07:41 03/27/25 07:41 03/27/25 07:41 03/27/25 07:41 03/27/25 09:00 03/26/25 23:22 Laboratory Results - last 24 hr 03/26/25 19:07: WBC 12.3 H, RBC 5.30, Hgb 15.2, Hct 44.6, MCV 84.2, MCH 28.7, MCHC 34.1, RDW 11.9, Plt Count 324, MPV 9.1, Neut % (Auto) 60.3, Lymph % (Auto) 26.9, [place] % (Auto) 8.0, Eos % (Auto) 3.8, Baso % (Auto) 0.7, Neut # (Auto) 7.4, Lymph # (Auto) 3.3, [place] # (Auto) 1.0, Eos # (Auto) 0.5 H, Baso # (Auto) 0.1, PT 11.4, INR 1.03, APTT 28.3, Sodium 138, Potassium 3.6, Chloride 106, Carbon Dioxide 26, Anion Gap 9.6, BUN 17, Creatinine 1.10, Estimated Creat Clear 137, Estimated GFR 81, Est GFR ( Amer) 98, Glucose 111 H, Calcium 9.4, Total Bilirubin 0.5, AST 47, ALT 74, Alkaline Phosphatase 70, C-Reactive Protein 22.0 H, Total Protein 8.0, Albumin 4.8, Globulin 3.2, Albumin/Globulin Ratio 1.5, Lipase 96 03/26/25 19:19: Urine Color Yellow, Urine Appearance Clear, Urine pH 6.0, Ur Specific [place] >= 1.030, Urine Protein Negative, Urine Glucose (UA) Trace, Urine Ketones Negative, Urine Blood Negative, Urine Nitrate Negative, Urine Bilirubin Negative, Urine Urobilinogen 0.2, Ur Leukocyte Esterase Negative, Urine RBC None, Urine WBC Occasional, Ur Squamous Epith Cells None, Urine Bacteria Trace 03/26/25 19:21: Lactate 1.1 03/26/25 20:30: Blood Type A Positive, Antibody Screen Negative 03/26/25 21:25: Urine Color Yellow, Urine Appearance Clear, Urine pH 6.0, Ur Specific [place] 1.020, Urine Protein Negative, Urine Glucose (UA) Negative, Urine Ketones Negative, Urine Blood Negative, Urine Nitrate Negative, Urine Bilirubin Negative, Urine Urobilinogen 0.2, Ur Leukocyte Esterase Negative, Ur Squamous Epith Cells Occasional 03/27/25 05:42: WBC 10.2, RBC 4.85, Hgb 13.8 L, Hct 41.4 L, MCV 85.4, MCH 28.0, MCHC 32.9, RDW 11.8, Plt Count 300, MPV 10.1, Neut % (Auto) 86.1 H, Lymph % (Auto) 11.9, [place] % (Auto) 1.5 L, Eos % (Auto) 0.0 L, Baso % (Auto) 0.1, Neut # (Auto) 8.8 H, Lymph # (Auto) 1.2, [place] # (Auto) 0.2, Eos # (Auto) 0.0, Baso # (Auto) 0.0, Sodium 135 L, Potassium 4.5 D, Chloride 106, Carbon Dioxide 23, Anion Gap 10.5, BUN 13, Creatinine 1.10, Estimated Creat Clear 143, Estimated GFR 81, Est GFR ( Amer) 98, Glucose 148 H D, Calcium 8.9 I & O for Last 24 hours: Intake & Output 03/24/25 03/25/25 03/26/25 03/27/25 23:59 23:59 23:59 23:59 Intake Total 800 / 1040 340 / 340 Output Total 0 / 0 Balance 800 / 1040 340 / 340 Weight 95.254 kg 99.11 kg Constitutional Constitutional: no acute distress *Routine HEENT Exam Head: Present normocephalic Eye: Present EOMI and PERRL ENT: Present mucous membranes moist *Routine Neck Exam Neck: Present supple; Absent lymphadenopathy *Routine Respiratory Exam Respiratory: Present CTA bilaterally *Routine Cardiovascular Exam Cardiovascular: Present RRR *Routine Abdominal Exam Abdominal: Present soft, normoactive bowel sounds and tenderness Comments: Incision sites clean dry and intact. No peritoneal signs. *Routine Extremities Exam Extremities: Absent cyanosis, clubbing or edema *Routine Skin Exam Skin: Present warm; Absent rash *Routine Neurological Exam Neurological: Present alert and oriented X3 Results Data Completed and Pending Labs on day of discharge: Labs from last 24 hours 03/27/25 03/26/25 03/26/25 05:42 21:25 20:30 WBC 10.2 RBC 4.85 Hgb 13.8 L Hct 41.4 L MCV 85.4 MCH 28.0 MCHC 32.9 RDW 11.8 Plt Count 300 MPV 10.1 Neut % (Auto) 86.1 H Lymph % (Auto) 11.9 [place] % (Auto) 1.5 L Eos % (Auto) 0.0 L Baso % (Auto) 0.1 Neut # (Auto) 8.8 H Lymph # (Auto) 1.2 [place] # (Auto) 0.2 Eos # (Auto) 0.0 Baso # (Auto) 0.0 PT INR APTT Sodium 135 L Potassium 4.5 D Chloride 106 Carbon Dioxide 23 Anion Gap 10.5 BUN 13 Creatinine 1.10 Estimated Creat Clear 143 Estimated GFR 81 Est GFR ( Amer) 98 Glucose 148 H D Lactate Calcium 8.9 Total Bilirubin AST ALT Alkaline Phosphatase C-Reactive Protein Total Protein Albumin Globulin Albumin/Globulin Ratio Lipase Urine Color Yellow Urine Appearance Clear Urine pH 6.0 Ur Specific [place] 1.020 Urine Protein Negative Urine Glucose (UA) Negative Urine Ketones Negative Urine Blood Negative Urine Nitrate Negative Urine Bilirubin Negative Urine Urobilinogen 0.2 Ur Leukocyte Esterase Negative Urine RBC Urine WBC Ur Squamous Epith Cells Occasional Urine Bacteria Blood Type A Positive Antibody Screen Negative 03/26/25 03/26/25 03/26/25 19:21 19:19 19:07 WBC 12.3 H RBC 5.30 Hgb 15.2 Hct 44.6 MCV 84.2 MCH 28.7 MCHC 34.1 RDW 11.9 Plt Count 324 MPV 9.1 Neut % (Auto) 60.3 Lymph % (Auto) 26.9 [place] % (Auto) 8.0 Eos % (Auto) 3.8 Baso % (Auto) 0.7 Neut # (Auto) 7.4 Lymph # (Auto) 3.3 [place] # (Auto) 1.0 Eos # (Auto) 0.5 H Baso # (Auto) 0.1 PT 11.4 INR 1.03 APTT 28.3 Sodium 138 Potassium 3.6 Chloride 106 Carbon Dioxide 26 Anion Gap 9.6 BUN 17 Creatinine 1.10 Estimated Creat Clear 137 Estimated GFR 81 Est GFR ( Amer) 98 Glucose 111 H Lactate 1.1 Calcium 9.4 Total Bilirubin 0.5 AST 47 ALT 74 Alkaline Phosphatase 70 C-Reactive Protein 22.0 H Total Protein 8.0 Albumin 4.8 Globulin 3.2 Albumin/Globulin Ratio 1.5 Lipase 96 Urine Color Yellow Urine Appearance Clear Urine pH 6.0 Ur Specific [place] >= 1.030 Urine Protein Negative Urine Glucose (UA) Trace Urine Ketones Negative Urine Blood Negative Urine Nitrate Negative Urine Bilirubin Negative Urine Urobilinogen 0.2 Ur Leukocyte Esterase Negative Urine RBC None Urine WBC Occasional Ur Squamous Epith Cells None Urine Bacteria Trace Blood Type Antibody Screen DS: Diagnosis Discharge Diagnosis (1) Eye abnormalities: Status: Acute Code(s): 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, unspecified Meds Home Medications and Allergies Home Medications ?Medication ?Instructions ?Recorded ?Confirmed ?Type albuterol sulfate 90 mcg/actuation 2 puff inhalation Q IDP PRN 03/27/25 03/27/25 History aerosol inhaler shortness of breath or [place] ing hydrocodone 5 mg-acetaminophen 325 1 - 2 tab PO Q6H NE N Pain #17 tabs 03/27/25 Rx mg tablet simethicone 125 mg capsule 125 mg PO Q6HP PRN abdomina l 03/27/25 Rx bloating #10 caps New Prescriptions to Start Prescriptions: hydrocodone-acetaminophen Vikas Rivasethicone Cheo Mendez Allergies Allergy/AdvReac Type Severity Reaction Status Date / Time Penicillins (PENICILLINS) Allergy Unknown Verified 01/07/24 11:54 Discharge Plan Disposition Patient Disposition: Home, Self-Care Condition: Good Follow up Plan Follow up with: Vikas Rivas MD [Staff Physician, General Surgery] - 04/16/25 9:00 am Krishan Valente MD [Primary Care Provider, Medical] - 04/02/25 1:45 pm Prescriptions/Medication Reconciliation: New hydrocodone-acetaminophen 5-325 mg Tablet 1 - 2 tab PO Q6H PRN (Reason: Pain) Qty: 17 0RF simethicone 125 mg capsule 125 mg PO Q6HP PRN (Reason: abdominal bloating) Qty: 10 0RF Continued albuterol sulfate 90 mcg/actuation HFA aerosol inhaler 2 puff inhalation QIDP PRN (Reason: shortness of breath or wheezing) Problem Reconciliation Problems Reviewed?: Yes Patient Discharge Instructions ACTIVITY: No heavy lifting DIET: advance to your usual diet Stand Alone Forms: [facility] Work Release Patient Instructions: DI for Appendicitis -- Adult, Appendicitis, DI for Acute Abdominal Pain Print Language: Nepali Providers Primary Care Provider: Krishan Valente Admit Provider: Cheo Mendez Attending Provider: Cheo Mendez
--- NOTE | 2025-03-31 10:10 | SW/DCPLANNER ---
Spoke with patient on the phone. Patient stated that he is doing good. Patient stated that he is aware of his upcoming appointments. Patient stated that he was able to get his new medicine picked up from [facility]. Patient stated that he has no concerns or questions at this time. Al Li
== END 2025-03-27 11:19 | disposition home or self-care (01) ==
LOC: ER 20:52 → SDC 21:16 → 2ND 22:01
PROVIDERS: Nurse Practitioner Family; Surgery; Admitting Provider Student in an Organized Health Care Education/Training Program; Emergency Provider Student in an Organized Health Care Education/Training Program; PCP Internal Medicine; Visit Provider Student in an Organized Health Care Education/Training Program
PROC: 0DTJ4ZZ Resection of Appendix, Percutaneous Endoscopic Approach (ICD-10-PCS; CPT 44970; principal; 2025-03-26 21:45)
DX: K36 Other appendicitis (principal); D72.829 Elevated white blood cell count, unspecified; Q15.9 Congenital malformation of eye, unspecified; H11.32 Conjunctival hemorrhage, left eye; J45.909 Unspecified asthma, uncomplicated; Z88.0 Allergy status to penicillin; Z90.49 Acquired absence of other specified parts of digestive tract; Z87.891 Personal history of nicotine dependence; Z79.899 Other long term (current) drug therapy
CPT/HCPCS: 44970; 36415; 51702; 74177; 80048; 80053; 81001; 83605; 83690; 85025; 85610; 85730; 86140; 86850; 96361; 96365; 96366; 96367; 96374; 96375; 96376; 99231; 99285; G0378; J0692; J1100; J1836; J2003; J2250; J2270; J2405; J2704; J2795; J3010; J7120; Q9967